=== PATIENT | male | born 1945 | race Caucasian/White ===

== ENCOUNTER 2017-08-25 11:41 | Inpatient (IN) | payer MEDICARE, BC ==
--- NOTE | 2017-08-25 12:26 | CT ---
CT BRAIN WITHOUT CONTRAST: History: Altered mental status. FINDINGS: There is ventricular and sulcal prominence due to cortical atrophy. No evidence of acute infarct, hem orrhage, midline shift, or abnormal extraaxial fluid collections seen. Ventricular size is appropriat e and the basilar cisterns patent. The bony calvarium is intact. The visualized paranasal sinuses and mastoid air cells are well aerated. IMPRESSION: No CT evidence of acute intracranial process. POS: [facility]
[2017-08-25 12:44] LABS: #Eosinphils 0.1 thou/uL (0.0-0.7); #Lymphocytes 1.5 thou/uL (1.20-3.40); #Monocytes 0.8 thou/uL (0.11-0.59); #Neutrophils 9.2 thou/uL (1.40-6.50); %Basophils 0.1 % (0.0-1.0); %Eosinophils 0.6 % (0.0-10.0); %Lymphocytes 12.9 % (21.0-51.0); %Monocytes 6.5 % (0.0-10.0); %Neutrophils 79.9 % (42.0-75.0); Hemoglobin 14.7 g/dL (14.0-18.0); Mean Corpuscular HGB CONC 34.3 g/dL (32.0-36.0); Mean Corpuscular Hemoglobin 30.6 pg (27.0-31.0); Mean Corpuscular Volume 89.3 fL (78.0-98.0); Mean Platelet Volume 8.4 fL (7.4-10.4); Platelet Count 131 thou/uL (130-400); Red Blood Cell (RBC) Count 4.82 mill/uL (4.70-6.10); White Blood Cell (WBC) Count 11.5 thou/uL (4.8-10.8)
[2017-08-25 13:01] LABS: ALT (SGPT) 10 U/L (8-55); AST (SGOT) 12 U/L (5-34); Albumin 3.4 g/dL (3.4-4.8); Alkaline Phosphatase 97 U/L (40-150); Anion Gap 15 mmol/L (10-20); BUN (Urea Nitrogen) 22 mg/dL (8.4-25.7); Calc. Creatinine Clearance 0 mL/min (70-130); Calcium 8.8 mg/dL (7.8-10.44); Carbon Dioxide 22 mmol/L (23-31); Chloride 103 mmol/L (98-107); Estimated GFR-MDRD 50; Globulin 2.9 g/dL (2.4-3.5); Glucose 131 mg/dL (80-115); Lipase Less than 4 U/L (8-78); Potassium 4.2 mmol/L (3.5-5.1); Protein, Total 6.3 g/dL (5.8-8.1); Sodium 136 mmol/L (136-145)
[2017-08-25 13:03] LABS: CK (CPK) 35 U/L (30-200)
[2017-08-25 13:05] LABS: CKMB 1.1 ng/mL (0-6.6); Troponin I Less than 0.010 ng/mL (< 0.028)
[2017-08-25 13:09] LABS: Bilirubin Moderate (Negative); Blood, Urine Negative (Negative); Clarity CLEAR (Clear); Glucose, Urine (Dipstick) 100 mg/dL (Negative); Leukocyte Negative (Negative); Nitrite Negative (Negative); Protein, Urine (Dipstick) Negative (Neg-Trace); Specific Gravity, Urine 1.023 (1.002-1.036)
--- NOTE | 2017-08-25 13:22 | RAD ---
PORTABLE CHEST 1 VIEW: Date: 08/25/17 Time: 1225 hours HISTORY: Altered mental status. FINDINGS: The heart size is normal. The lungs are expanded without focal areas of consolidation, pneumothorax, or pleural effusions. There are degenerative changes in the acromioclavicular joints and shoulder morris nts. IMPRESSION: No radiographic evidence of acute cardiopulmonary process. POS: [facility]
[2017-08-25 16:16] LABS: Troponin I Less than 0.010 ng/mL (< 0.028)
[2017-08-25 19:26] LABS: Troponin I 0.014 ng/mL (< 0.028)
[2017-08-25] MEDS ORDERED: Sodium Chloride 0.9% 1,000 ML IV SCH (19:30)
[2017-08-25] MEDS ORDERED: Ondansetron HCl/PF 4 MG/2 ML Vial IVP PRN (19:40)
[2017-08-25] MEDS ORDERED: Dextrose 50% Abboject 50 ML SYRINGE SLOW IVP PRN (19:40)
[2017-08-25] MEDS ORDERED: Dextrose 5% in Water 1,000 ML IV PRN (19:40)
[2017-08-25] MEDS ORDERED: Ondansetron ODT 4 MG TAB PO PRN (19:40)
[2017-08-25] MEDS ORDERED: cloNIDine 0.1 MG TAB PO PRN (19:40)
[2017-08-25] MEDS ORDERED: HumaLOG 300 UNITS/3 ML VIAL SC PRN (19:40)
[2017-08-25] MEDS: Famotidine/PF 20 mg/2ml Vial SLOW IVP SCH (20:05)
[2017-08-25] MEDS: Sodium Chloride 0.9% 1,000 ML IV SCH (20:05)
--- NOTE | 2017-08-26 02:05 | HP ---
DATE OF ADMISSION: 08/25/2017 PRIMARY CARE PROVIDER: Dr. Martinez. CHIEF COMPLAINT: Altered mental status. HISTORY OF PRESENT ILLNESS: This is a 71-year-old male who presents to [facility] in transport by EMS personnel after patient's caregiver noted increasing confusion and altered mental status in the last 24-48 hours. The history is obtained exclusively after discussion s with the ER attending as well as review of electronic medical records in the emergency room and dis cussions with the patient's caregiver, Ms. Mon. The patient apparently resides near [facility] in a mobile home with his caregiver and essentially is wheelchair bound due to advanced Parkinson's disease. The patient also has a significant history of advanced dementia, and diabetes mellitus typ e 1. The patient has lived with the caregiver for approximately 20 plus years relocating to the [facility] area after living in [place], [place]. The caregiver states the patient is usually verbal, responsi ve, can carry on conversations and feed himself. The patient over the last 48 hours was noted with c onfusion, decreased alertness, sleeping 20+ hours out of the day and night, and appearing to hallucin ate. 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 The patient was not noted with any specif ic hyper or hypoglycemia or hypotension per caregiver report. The patient does urinate in a adult de pends/diaper on a regular basis. The patient has been placed on Myrbetriq in the last 2 months prior to this evaluation. The medication was started due to nocturnal incontinence. The caregiver report s no specific change in the frequency or volume of nocturnal incontinence. The patient has been foll owed on a regular basis by the Neurology at [facility] in [place], [place] and diagnosed with the Parkinson 's disease and advanced dementia. The patient also with diabetes mellitus type 1 on Lantus 20 units at bedtime with occasional sliding scale with NovoLog. In the emergency room, the patient underwent evaluation including CT imaging of the brain showing no acute intracranial process. Portable chest x -ray was unrevealing and screening metabolic survey showed mild leukocytosis and elevated creatinine suggestive of dehydration. The patient received intravenous normal saline and had been observed on t he electronic device monitor showing a sinus bradycardia in the 40s-50s. The patient was referred to the [facility] for evaluation and admission. PAST MEDICAL HISTORY: 1. Advanced Parkinson's disease requiring mobilization with wheelchair. 2. Dementia, likely Alzheimer's type. 3. Diabetes mellitus type 1, treated with Lantus. 4. History of myocardial infarction. 5. Question of dysphagia. PAST SURGICAL HISTORY: Status post cholecystectomy. CURRENT MEDICATIONS: 1. Myrbetriq 50 mg p.o. daily. 2. Folbic 2/2.5/25 mg 1 tablet p.o. daily. 3. Sertraline 50 mg 1 tablet p.o. q.a.m. and 2 tabs at the bedtime. 4. NovoLog sliding scale. 5. Lantus 20 units subcutaneously at bedtime. ALLERGIES: No known drug allergies. FAMILY HISTORY: Positive for diabetes. SOCIAL HISTORY: The patient resides in the [facility], living with a glue reel operator over the last 20+ years. No alcohol, tobacco or illicit drug use. Requires assistance with all activities of ruth ly living. Mobilizes with the use of a wheelchair. No recent falls. 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 REVIEW OF SYSTEMS: The following complete review of systems was negative, unless otherwise mentioned in the HPI or below: Constitutional: Weight loss or gain, ability to conduct usual activities. Sk in: Rash, itching. Eyes: Double vision, pain. ENT/Mouth: Nose bleeding, neck stiffness, pain, te nderness. Cardiovascular: Palpitations, dyspnea on exertion, orthopnea. Respiratory: Shortness of breath, wheezing, cough, hemoptysis, fever or night sweats. Gastrointestinal: Poor appetite, abdom inal pain, heartburn, nausea, vomiting, constipation, or diarrhea. Genitourinary: Urgency, frequenc y, dysuria, nocturia. Musculoskeletal: Pain, swelling. Neurologic/Psychiatric: Anxiety, depressio n. Allergy/Immunologic: Skin rash, bleeding tendency. Otherwise negative, except as stated per HPI. This was obtained after discussions with the patient's primary caregiver. PHYSICAL EXAMINATION: VITAL SIGNS: On admission, blood pressure 150/73, pulse 46, respiratory rate 18, temperature 98.5, O 2 saturation 99% on room air. T-max 100.1 degrees Fahrenheit. GENERAL APPEARANCE: This is a 71-year-old male, alert when directly engaged in conversatio n, responds with one word to his name. Oriented x1 to person. HEENT: Pupils are minimally reactive to light and accommodation. The patient does not track with ey es. No scleral icterus, no conjunctival injection. Nares patent. OP is clear. Oral mucosa dry. NECK: Supple, no cervical adenopathy, no thyromegaly, no carotid bruits, no JVD appreciated. Cervic al spine with full active and passive range of motion. No meningeal signs appreciated. Scalp is atr aumatic. CHEST: Lungs are clear to auscultation bilaterally. CARDIOVASCULAR: S1, S2, without noted murmur, rub or gallop. ABDOMEN: Rounded, soft, nontender, nondistended. Bowel sounds are positive in all four quadrants. There is no hepatosplenomegaly, no abdominal bruits, no rebound or guarding appreciated. EXTREMITIES: Warm and dry with fair turgor. No clubbing, cyanosis or asymmetric edema appreciated. Pulses palpable distally at the dorsalis pedis, posterior tibial, and popliteal arteries bilaterally . Capillary refill less than 2 seconds. NEUROLOGIC: Alert and oriented to person only. Does not follow commands. Not observed ambulatory. Moves extremities in random movements. Bilateral eye blindness. PERTINENT LABORATORY AND X-RAY FINDINGS: Sodium 136, potassium 4.2, chloride 103, CO2 of 22, BUN 22, creatinine 1.41, estimated GFR 50, glucose 131, calcium 8.8. LFTs within normal limits. Troponin I negative x2. Albumin 3.4, lipase less than 4, TSH 2.07. CBC showed a white blood cell count 11.5, hemoglobin 15, hematocrit 43, platelet count 131 with 80% neutrophils. Urinalysis showed positive gl ucose and ketones, moderate bilirubin with leukocyte esterase negative. CT of the brain without cont rast dated 08/25/2017 showed no acute intracranial process. Generalized cortical atrophy noted. Por table chest x-ray dated 08/25/2017 showed no acute cardiopulmonary process. EKG dated 08/25/2017 by my interpretation shows a sinus bradycardia with heart rates in the 40s to 50s. Normal R-wave progre ssion noted in the precordial leads. Right bundle branch block pattern noted. Left axis deviation. Question of bifascicular block. ASSESSMENT AND PLAN: 1. Acute encephalopathy likely metabolic in nature. The patient will be observed on the telemetry u nit. We will continue general supportive management. Suspect component of dehydration and questiona ble underlying infectious process. Continue serial neurologic evaluations. 2. Acute kidney injury. Suspect secondary to volume depletion and dehydration. We will continue in travenous normal saline at 125 mL per hour. Avoid nephrotoxic agents and limit contrast exposure. R epeat creatinine in the morning. 3. Neutrophilic leukocytosis. Question of underlying infectious process without obvious focal findi ngs on clinical exam. We will hold antibiotic therapy and monitor clinical response to supportive ma nagement. Repeat CBC in the a.m. 4. Diabetes mellitus type 1. Continue Lantus 20 units subcutaneously at bedtime when tolerating con sistent p.o. intake. Insulin sliding scale for reflexive coverage. ADA diet. 5. Dysphagia. Question of dysphagia on clinical exam. We will obtain speech therapy evaluation in the a.m. 6. Advanced Parkinson's disease with dementia. Continue general supportive management. Continue se rtraline. Continue Folbic. 7. Sinus bradycardia. Continue telemetry monitoring and ascertain if sinus bradycardia is related t o current presentation. 8. Prophylaxis. Sequential compression devices while in bed. Pepcid 20 mg IV q.12 hours. General fall precautions. Speech therapy evaluation in the a.m. 9. Code status is FULL. Surrogate medical decision maker is Ms. Mon, primary caregiver.
[2017-08-26] MEDS: Sodium Chloride 0.9% 1,000 ML IV SCH ×3 (04:04→21:07)
[2017-08-26 06:00] LABS: ALT (SGPT) 11 U/L (8-55); AST (SGOT) 28 U/L (5-34); Albumin 3.4 g/dL (3.4-4.8); Alkaline Phosphatase 98 U/L (40-150); Anion Gap 17 mmol/L (10-20); BUN (Urea Nitrogen) 20 mg/dL (8.4-25.7); Calc. Creatinine Clearance 58 mL/min (70-130); Calcium 8.7 mg/dL (7.8-10.44); Carbon Dioxide 20 mmol/L (23-31); Chloride 105 mmol/L (98-107); Estimated GFR-MDRD 57; Globulin 3.2 g/dL (2.4-3.5); Glucose 132 mg/dL (80-115); Potassium 4.5 mmol/L (3.5-5.1); Protein, Total 6.6 g/dL (5.8-8.1); Sodium 137 mmol/L (136-145)
[2017-08-26 07:41] LABS: Mean Corpuscular HGB CONC 33.2 g/dL (32.0-36.0); Mean Corpuscular Hemoglobin 30.3 pg (27.0-31.0); Mean Corpuscular Volume 91.4 fL (78.0-98.0); Mean Platelet Volume 8.8 fL (7.4-10.4); Platelet Count 110 thou/uL (130-400); RBC Distribution Width 11.9 % (11.5-14.5); Red Blood Cell (RBC) Count 4.62 mill/uL (4.70-6.10); White Blood Cell (WBC) Count 10.5 thou/uL (4.8-10.8)
[2017-08-26 07:45] LABS: Band 4 % (5-11); Eosinophils 1 % (0-10); Lymphocytes 12 % (21-51); Monocytes 4 % (0-10); Neutrophil 79 % (42-75)
[2017-08-26 07:46] LABS: MDiff Complete? YES
--- NOTE | 2017-08-26 14:05 | RAD ---
MODIFIED BARIUM SWALLOW IN THE PRESENCE OF A SPEECH THERAPIST: Date: 08/26/17 HISTORY: Dysphagia, unspecified, feeding difficulties. FINDINGS/IMPRESSION: There is laryngeal penetration and aspiration. Persistent pooling of contrast is seen with residual i n the vallecula and piriform sinuses. Please see recommendations of the speech therapist for further management. POS: [facility]
--- NOTE | 2017-08-26 15:32 | PDOC.PN ---
- Subjective Encounter Start Date: 08/26/17 Encounter Start Time: 15:25 Subjective: f/u for AMS, encephalopathy, GOYO and advanced Parkinson's and -: deconditioning. Receiving IVF's but remains weak and confused. - Objective MAR Reviewed: Yes Vital Signs & Weight: Vital Signs (12 hours) Temp Pulse Resp BP Pulse Ox 08/26/17 12:00 98.5 F 57 L 12 169/73 H 98 Result Diagrams: 08/26/17 05:25 08/26/17 05:25 Additional Labs: Accuchecks 08/26/17 10:59 POC Glucose 143 H Microbiology 08/25/17 12:48 Urine Straight Catheter Urine Culture - Preliminary NO GROWTH AT 12 HOURS Laboratory Tests 08/25/17 08/25/17 08/25/17 12:35 12:35 12:35 WBC 11.5 H Plt Count 131 Troponin I Less than 0.010 TSH 3rd Generation 2.0707 08/25/17 08/25/17 15:34 19:00 WBC Plt Count Troponin I Less than 0.010 0.014 TSH 3rd Generation Radiology Reviewed by me: Yes (MBS - +aspiration, penetration) EKG Reviewed by me: Yes (Tele - Sinus bradycardia) Phys Exam - Physical Examination does not track, bilat eye blindness HEENT: moist MMs, sclera anicteric, oral pharynx no lesions Neck: no nodes, no JVD, supple, full ROM Respiratory: no wheezing, no rales, no rhonchi, clear to auscultation bilateral S1, S2 Cardiovascular: RRR, no significant murmur, no rub, gallop Gastrointestinal: soft, non-tender, no distention, positive bowel sounds Musculoskeletal: no edema, pulses present alert, does not track, states a few words to direct questioning Neurological: moves all 4 limbs A x O x 1 Skin: no rash, normal turgor, cap refill <2 seconds Dx/Plan (1) Acute metabolic encephalopathy Code(s): G93.41 - METABOLIC ENCEPHALOPATHY Status: Acute Comment: Persistent , likely multifactorial, check MRI brain to r/o occult CVA, continue supportive mgmt (2) GOYO (acute kidney injury) Code(s): N17.9 - ACUTE KIDNEY FAILURE, UNSPECIFIED Status: Acute Comment: Slow improvement, continue IVF's, avoid nephrotoxic meds and limit contrast exposure, serial monitoring (3) Neutrophilic leukocytosis Code(s): D72.9 - DISORDER OF WHITE BLOOD CELLS, UNSPECIFIED Status: Acute Comment: Improved, continue supportive mgmt, CBC in am (4) Aspiration into airway Code(s): T17.908A - UNSP FB IN RESP TRACT, PART UNSP CAUSING OTH INJURY, INIT Status: Acute Comment: Speech therapy for modified diet and daily assessment, may need to consider PEG placement (5) Dysphagia Code(s): R13.10 - DYSPHAGIA, UNSPECIFIED Status: Acute Qualifiers: Dysphagia type: oropharyngeal phase Qualified Code(s): R13.12 - Dysphagia, oropharyngeal phase Comment: Likely a chronic condition potentially exacerbated with dehydration, see above for mgmt (6) DM I (diabetes mellitus, type I) Status: Chronic Comment: Hold Lantus, ISS (7) Sinus bradycardia Code(s): R00.1 - BRADYCARDIA, UNSPECIFIED Status: Chronic Comment: Continue Tele monitoring, no correlation with current clinical presentation - Plan plan discussed w/ family, PT/OT, clinical social work therapist, speech therapy, DVT proph w/ SCDs Stable currently -: Convert to inpt status due to Encephalopathy, GOYO, Aspiration -: Continue IVF's -: MRI brain to r/o CVA -: Consider PEG placement if modified diet unsuccessful * AM lab: BMP, CBC * CM for SNF/Fpc care options
[2017-08-26] MEDS: Famotidine/PF 20 mg/2ml Vial SLOW IVP SCH ×2 (19:49→21:11)
[2017-08-26] MEDS: Donepezil HCl 10 MG TAB PO SCH (20:59)
[2017-08-26] MEDS ORDERED: DONEPEZIL HCL PO SCH (21:00)
[2017-08-26] MEDS ORDERED: [UNRECOGNIZED DRUG - OTHER] PO SCH (21:00)
[2017-08-26] MEDS ORDERED: MEMANTINE HCL PO SCH (21:00)
[2017-08-26] MEDS: Dorzolamide HCl/Timolol Maleate 2%/0.5% Ophth Soln 10 ml Bottle R EYE SCH (21:08)
[2017-08-26] MEDS: Latanoprost 0.005% Ophth Soln 2.5 ml Bottle EA EYE SCH (21:10)
[2017-08-27] MEDS: Sodium Chloride 0.9% 1,000 ML IV SCH (06:02)
[2017-08-27 06:23] LABS: Anion Gap 14 mmol/L (10-20); BUN (Urea Nitrogen) 13 mg/dL (8.4-25.7); Calc. Creatinine Clearance 80 mL/min (70-130); Calcium 8.7 mg/dL (7.8-10.44); Carbon Dioxide 22 mmol/L (23-31); Estimated GFR-MDRD 82; Glucose 146 mg/dL (80-115); Potassium 3.9 mmol/L (3.5-5.1); Sodium 137 mmol/L (136-145)
[2017-08-27 06:27] LABS: Chloride 105 mmol/L (98-107)
[2017-08-27 06:34] LABS: Band 3 % (5-11); Eosinophils 2 % (0-10); Hemoglobin 13.7 g/dL (14.0-18.0); Lymphocytes 19 % (21-51); MDiff Complete? YES; Mean Corpuscular Hemoglobin 31.3 pg (27.0-31.0); Mean Corpuscular Volume 89.4 fL (78.0-98.0); Mean Platelet Volume 9.5 fL (7.4-10.4); Monocytes 1 % (0-10); Neutrophil 74 % (42-75); PLT Morphology Comment Appears Decreased; Platelet Count 91 thou/uL (130-400); RBC Distribution Width 11.8 % (11.5-14.5); Reactive Lymphocytes 1 % (0-10); Red Blood Cell (RBC) Count 4.38 mill/uL (4.70-6.10); White Blood Cell (WBC) Count 6.9 thou/uL (4.8-10.8)
[2017-08-27] MEDS: Stress 600 With Zinc 1 TAB PO SCH (09:13)
[2017-08-27] MEDS: Dorzolamide HCl/Timolol Maleate 2%/0.5% Ophth Soln 10 ml Bottle R EYE SCH ×2 (09:13→20:13)
[2017-08-27] MEDS: Famotidine/PF 20 mg/2ml Vial SLOW IVP SCH ×2 (10:00→20:21)
--- NOTE | 2017-08-27 12:59 | PDOC.PN ---
- Subjective Encounter Start Date: 08/27/17 Encounter Start Time: 12:45 Subjective: Family stating clearer mentally. Appearing near baseline mentally. -: No new events. MRI unable to be completed due to head moving. - Objective MAR Reviewed: Yes Vital Signs & Weight: Vital Signs (12 hours) Temp Pulse Resp BP Pulse Ox 08/27/17 08:00 96.9 F L 84 18 155/83 H 94 L 08/27/17 03:23 97.3 F L 83 19 176/82 H 96 Weight Weight 165 lb I&O: 08/26/17 08/27/17 08/28/17 06:59 06:59 06:59 Intake Total 1200 Balance 1200 Result Diagrams: 08/27/17 04:50 08/27/17 04:50 Additional Labs: Accuchecks 08/27/17 08/27/17 08/26/17 10:55 05:49 20:55 POC Glucose 159 H 164 H 185 H 08/26/17 16:35 POC Glucose 180 H Microbiology 08/25/17 12:48 Urine Straight Catheter Urine Culture - Preliminary NO GROWTH AT 12 HOURS Laboratory Tests 08/25/17 08/25/17 08/25/17 12:35 12:35 12:35 WBC 11.5 H Plt Count 131 Creatinine 1.41 H Troponin I [facility] 3rd Generation 2.0707 08/25/17 08/25/17 08/25/17 12:35 15:34 19:00 WBC Plt Count Creatinine Troponin I Less than 0.010 Less than 0.010 0.014 TSH 3rd Generation 08/26/17 05:25 WBC Plt Count Creatinine 1.26 Troponin I [facility] 3rd Generation Radiology Reviewed by me: Yes (MRI brain - pending) EKG Reviewed by me: Yes (SR in 80's) Phys Exam - Physical Examination Constitutional: NAD HEENT: sclera anicteric, oral pharynx no lesions Neck: no nodes, no JVD, supple, full ROM Respiratory: no wheezing, no rales, no rhonchi, clear to auscultation bilateral S1, S2 Cardiovascular: RRR, no significant murmur, no rub, gallop Gastrointestinal: soft, non-tender, no distention, positive bowel sounds Musculoskeletal: no edema, pulses present Neurological: moves all 4 limbs Skin: no rash, normal turgor, cap refill <2 seconds Dx/Plan (1) Acute metabolic encephalopathy Code(s): G93.41 - METABOLIC ENCEPHALOPATHY Status: Acute Comment: Persistent , likely multifactorial, check MRI brain to r/o occult CVA, continue supportive mgmt, slow improvement (2) GOYO (acute kidney injury) Code(s): N17.9 - ACUTE KIDNEY FAILURE, UNSPECIFIED Status: Acute Comment: Slow improvement, continue IVF's, avoid nephrotoxic meds and limit contrast exposure, serial monitoring (3) Neutrophilic leukocytosis Code(s): D72.9 - DISORDER OF WHITE BLOOD CELLS, UNSPECIFIED Status: Acute Comment: Improved, continue supportive mgmt, CBC in am (4) Aspiration into airway Code(s): T17.908A - UNSP FB IN RESP TRACT, PART UNSP CAUSING OTH INJURY, INIT Status: Acute Comment: Speech therapy for modified diet and daily assessment, may need to consider PEG placement (5) Dysphagia Code(s): R13.10 - DYSPHAGIA, UNSPECIFIED Status: Acute Qualifiers: Dysphagia type: oropharyngeal phase Qualified Code(s): R13.12 - Dysphagia, oropharyngeal phase Comment: Likely a chronic condition potentially exacerbated with dehydration, see above for mgmt (6) DM I (diabetes mellitus, type I) Status: Chronic Comment: Hold Lantus, ISS (7) Sinus bradycardia Code(s): R00.1 - BRADYCARDIA, UNSPECIFIED Status: Chronic Comment: Continue Tele monitoring, no correlation with current clinical presentation - Plan plan discussed w/ family, PT/OT, social secretary, DVT proph w/SCDs Stable currently -: Start Rocephin 2gm IV daily -: Change IVF D5NS 100ml/h -: Speech therapy for re-evaluation of dysphagia -: NPO currently * AM lab: BMP
[2017-08-27] MEDS: Dextrose 5 % And 0.9 % NaCl 1,000 ML IV SCH (13:17)
[2017-08-27] MEDS: cefTRIAXone\\ROCEPHIN 2 GM in Sodium Chloride 0.9% 100 ML IVPB SCH (15:16)
[2017-08-27] MEDS: Donepezil HCl 10 MG TAB PO SCH (20:10)
[2017-08-27] MEDS: Latanoprost 0.005% Ophth Soln 2.5 ml Bottle EA EYE SCH (20:27)
[2017-08-27] MEDS: hydrALAZINE 20 MG/ML VIAL SLOW IVP PRN (21:19)
[2017-08-28] MEDS: Dextrose 5 % And 0.9 % NaCl 1,000 ML IV SCH ×3 (00:25→21:53)
[2017-08-28] MEDS: Sodium Chloride 0.9% 1,000 ML IV SCH (01:02)
[2017-08-28 05:53] LABS: Anion Gap 16 mmol/L (10-20); BUN (Urea Nitrogen) 8 mg/dL (8.4-25.7); Calc. Creatinine Clearance 88 mL/min (70-130); Calcium 8.4 mg/dL (7.8-10.44); Carbon Dioxide 19 mmol/L (23-31); Chloride 103 mmol/L (98-107); Estimated GFR-MDRD Greater than 90; Glucose 233 mg/dL (80-115); Potassium 3.5 mmol/L (3.5-5.1); Sodium 134 mmol/L (136-145)
[2017-08-28] MEDS: Dorzolamide HCl/Timolol Maleate 2%/0.5% Ophth Soln 10 ml Bottle R EYE SCH ×2 (09:47→20:42)
[2017-08-28] MEDS: Famotidine/PF 20 mg/2ml Vial SLOW IVP SCH ×2 (09:47→20:38)
[2017-08-28] MEDS: Stress 600 With Zinc 1 TAB PO SCH (09:48)
[2017-08-28] MEDS: HumaLOG 300 UNITS/3 ML VIAL SC PRN (12:55)
[2017-08-28] MEDS: cefTRIAXone\\ROCEPHIN 2 GM in Sodium Chloride 0.9% 100 ML IVPB SCH (14:58)
--- NOTE | 2017-08-28 15:05 | PDOC.PN ---
- Subjective Encounter Start Date: 08/28/17 Encounter Start Time: 14:00 Subjective: f/u for AMS and GOYO with dehydration. Still hallucinating per family -: and choked on water this am. - Objective MAR Reviewed: Yes Vital Signs & Weight: Vital Signs (12 hours) Temp Pulse Resp BP Pulse Ox 08/28/17 07:50 97.7 F 79 18 174/89 H 96 08/28/17 03:30 98.5 F 87 18 167/84 H 97 Weight Weight 164 lb 11.2 oz I&O: 08/27/17 08/28/17 08/29/17 06:59 06:59 06:59 Intake Total 1200 2429 Output Total 200 Balance 1200 2229 Result Diagrams: 08/27/17 04:50 08/28/17 04:28 Additional Labs: Accuchecks 08/28/17 08/27/17 08/27/17 05:47 20:45 16:56 POC Glucose 240 H 198 H 172 H Microbiology 08/25/17 12:48 Urine Straight Catheter Urine Culture - Preliminary NO GROWTH AT 12 HOURS Laboratory Tests 08/25/17 08/25/17 08/25/17 12:35 12:35 12:35 WBC 11.5 H Plt Count 131 Creatinine 1.[address] [facility] 3rd Generation 2.0707 08/25/17 08/25/17 08/25/17 12:35 15:34 19:00 WBC Plt Count Creatinine Troponin I Less than 0.010 Less than 0.010 0.014 TSH 3rd Generation 08/26/17 05:25 WBC Plt Count Creatinine 1.[address] [facility] 3rd Generation EKG Reviewed by me: Yes (Tele - SR) Phys Exam - Physical Examination answers direct questions with 2 words HEENT: PERRLA, sclera anicteric, oral pharynx no lesions Neck: no nodes, no JVD, supple, full ROM Respiratory: no wheezing, no rales, no rhonchi, clear to auscultation bilateral S1, S2 Cardiovascular: RRR, no significant murmur, no rub, gallop Gastrointestinal: soft, non-tender, no distention, positive bowel sounds Musculoskeletal: no edema, pulses present Neurological: normal sensation, moves all 4 limbs A x O x 1 Skin: no rash, normal turgor, cap refill <2 seconds Dx/Plan (1) Acute metabolic encephalopathy Code(s): G93.41 - METABOLIC ENCEPHALOPATHY Status: Acute Comment: Persistent , likely multifactorial, check MRI brain to r/o occult CVA, continue supportive mgmt, slow improvement (2) GOYO (acute kidney injury) Code(s): N17.9 - ACUTE KIDNEY FAILURE, UNSPECIFIED Status: Acute Comment: Improved, continue IVF's, avoid nephrotoxic meds and limit contrast exposure, serial monitoring (3) Neutrophilic leukocytosis Code(s): D72.9 - DISORDER OF WHITE BLOOD CELLS, UNSPECIFIED Status: Acute Comment: Improved, continue supportive mgmt, CBC in am (4) Aspiration into airway Code(s): T17.908A - UNSP FB IN RESP TRACT, PART UNSP CAUSING OTH INJURY, INIT Status: Acute Comment: Speech therapy for modified diet and daily assessment, may need to consider PEG placement (5) Dysphagia Code(s): R13.10 - DYSPHAGIA, UNSPECIFIED Status: Acute Qualifiers: Dysphagia type: oropharyngeal phase Qualified Code(s): R13.12 - Dysphagia, oropharyngeal phase Comment: Likely a chronic condition potentially exacerbated with dehydration, see above for mgmt, likely will need a PEG tube for nutritional support (6) DM I (diabetes mellitus, type I) Status: Chronic Comment: Hold Lantus, ISS (7) Sinus bradycardia Code(s): R00.1 - BRADYCARDIA, UNSPECIFIED Status: Chronic Comment: Continue Tele monitoring, no correlation with current clinical presentation - Plan plan discussed w/ family, continue antibiotics, PT/OT, renal social worker, speech therapy, DVT proph w/SCDs Stable overall -: Speech therapy for reassessment of swallowing -: Likely will need to consider PEG tube -: Palliative care consult for MPOA assistance -: Continue Rocephin * Continue D5NS IV * Consider MRI brain imaging in am
[2017-08-28] MEDS: Donepezil HCl 10 MG TAB PO SCH (20:35)
[2017-08-28] MEDS: Latanoprost 0.005% Ophth Soln 2.5 ml Bottle EA EYE SCH (20:36)
[2017-08-29] MEDS: Dextrose 5 % And 0.9 % NaCl 1,000 ML IV SCH ×2 (06:41→14:55)
[2017-08-29] MEDS: Famotidine/PF 20 mg/2ml Vial SLOW IVP SCH ×2 (09:08→20:34)
[2017-08-29] MEDS: Dorzolamide HCl/Timolol Maleate 2%/0.5% Ophth Soln 10 ml Bottle R EYE SCH ×2 (09:08→20:32)
[2017-08-29] MEDS: Stress 600 With Zinc 1 TAB PO SCH (09:12)
[2017-08-29 13:07] VITALS: BMI 23.6
[2017-08-29] MEDS: cefTRIAXone\\ROCEPHIN 2 GM in Sodium Chloride 0.9% 100 ML IVPB SCH (14:55)
--- NOTE | 2017-08-29 17:05 | PDOC.PN ---
- Subjective Encounter Start Date: 08/29/17 Encounter Start Time: 13:15 Subjective: f/u for AMS, advanced dementia and dysphagia. Still unable to tolerate -: po intake. Continues to hallucinate, rambles sentences. - Objective MAR Reviewed: Yes Vital Signs & Weight: Vital Signs (12 hours) Temp Pulse Pulse Pulse Resp BP BP 08/29/17 15:01 98.2 F 79 16 08/29/17 13:44 86 91 181/81 H 185/95 H 08/29/17 11:40 97.6 F 79 18 08/29/17 09:05 96.4 F L 87 16 BP Pulse Ox 08/29/17 15:01 165/80 H 98 08/29/17 13:44 08/29/17 11:40 163/87 H 100 08/29/17 09:05 143/89 H 100 Weight Admit Weight 163 lb Weight 164 lb 11.2 oz I&O: 08/28/17 08/29/17 08/30/17 06:59 06:59 06:59 Intake Total 2429 1051 Output Total 200 150 Balance 2229 901 Result Diagrams: 08/27/17 04:50 08/28/17 04:28 Additional Labs: Accuchecks 08/29/17 08/28/17 06:10 20:40 POC Glucose 241 H 268 H EKG Reviewed by me: Yes (Tele - SR) Phys Exam - Physical Examination alert, responds a few words to questions HEENT: PERRLA, sclera anicteric, oral pharynx no lesions Neck: no nodes, no JVD, supple, full ROM Respiratory: no wheezing, no rales, no rhonchi, clear to auscultation bilateral S1, S2 Cardiovascular: RRR, no significant murmur, no rub, gallop Gastrointestinal: soft, non-tender, no distention, positive bowel sounds Musculoskeletal: no edema, pulses present confused, visual hallucinations Neurological: moves all 4 limbs A x O x 1 Skin: no rash, normal turgor, cap refill <2 seconds Dx/Plan (1) Acute metabolic encephalopathy Code(s): G93.41 - METABOLIC ENCEPHALOPATHY Status: Acute Comment: Persistent , likely multifactorial, supportive mgmt (2) GOYO (acute kidney injury) Code(s): N17.9 - ACUTE KIDNEY FAILURE, UNSPECIFIED Status: Acute Comment: Improved, IVF's, avoid nephrotoxic meds and limit contrast exposure (3) Neutrophilic leukocytosis Code(s): D72.9 - DISORDER OF WHITE BLOOD CELLS, UNSPECIFIED Status: Acute Comment: Improved, continue supportive mgmt, CBC in am (4) Aspiration into airway Code(s): T17.908A - UNSP FB IN RESP TRACT, PART UNSP CAUSING OTH INJURY, INIT Status: Acute Comment: Speech therapy for modified diet and daily assessment, family likely leaning toward PEG tube placement (5) Dysphagia Code(s): R13.10 - DYSPHAGIA, UNSPECIFIED Status: Acute Qualifiers: Dysphagia type: oropharyngeal phase Qualified Code(s): R13.12 - Dysphagia, oropharyngeal phase Comment: Likely a chronic condition potentially exacerbated with dehydration, see above for mgmt, likely will need a PEG tube for nutritional support, consult GI service (6) DM I (diabetes mellitus, type I) Status: Chronic Comment: Hold Lantus due to NPO, ISS (7) Sinus bradycardia Code(s): R00.1 - BRADYCARDIA, UNSPECIFIED Status: Chronic Comment: Continue Tele monitoring, no correlation with current clinical presentation - Plan plan discussed w/ family, continue antibiotics, PT/OT, web content & social media manager, speech therapy, respiratory therapy, DVT proph w/SCDs AMS persists likely new baseline for pt -: Consult GI service for PEG tube placement -: MPOA established with Palliative care assistance -: Continue IVF's -: Continue Aricept and Namenda * Updated family today
[2017-08-29] MEDS ORDERED: Lorazepam 2 MG/ML VIAL SLOW IVP PRN (18:50)
[2017-08-29] MEDS: Donepezil HCl 10 MG TAB PO SCH (20:31)
[2017-08-29] MEDS: Latanoprost 0.005% Ophth Soln 2.5 ml Bottle EA EYE SCH (20:34)
[2017-08-30] MEDS: hydrALAZINE 20 MG/ML VIAL SLOW IVP PRN (00:34)
[2017-08-30] MEDS: Dextrose 5 % And 0.9 % NaCl 1,000 ML IV SCH ×3 (00:40→21:50)
[2017-08-30] MEDS: Stress 600 With Zinc 1 TAB PO SCH (08:51)
[2017-08-30] MEDS: Dorzolamide HCl/Timolol Maleate 2%/0.5% Ophth Soln 10 ml Bottle R EYE SCH ×2 (08:54→20:29)
[2017-08-30] MEDS: Famotidine/PF 20 mg/2ml Vial SLOW IVP SCH ×2 (08:54→21:50)
[2017-08-30] MEDS: cefTRIAXone\\ROCEPHIN 2 GM in Sodium Chloride 0.9% 100 ML IVPB SCH (14:51)
[2017-08-30] MEDS: Donepezil HCl 10 MG TAB PO SCH (20:24)
[2017-08-30] MEDS: Latanoprost 0.005% Ophth Soln 2.5 ml Bottle EA EYE SCH (20:29)
--- NOTE | 2017-08-31 05:08 | CON ---
DATE OF CONSULTATION: 08/30/2017 HISTORY OF PRESENT ILLNESS: The patient is a 71-year-old gentleman with a history of Parki nson's disease who presented with altered mental status. He was seen and evaluated by Speech Patholo gy and underwent a modified barium swallow and showed severe risk for aspiration. Findings per the b arium swallow showed laryngeal penetration and aspiration. PAST MEDICAL HISTORY: Significant for advanced Parkinson's disease, dementia, diabetes mellitus. PAST SURGICAL HISTORY: Includes cholecystectomy. MEDICATIONS: Include Myrbetriq 50 mg p.o. daily, Folbic 05/01/24 1 p.o. daily, sertraline 50 mg 1 p.o . q.a.m. and 2 p.o. q.p.m., insulin sliding scale. ALLERGIES: No known allergies. SOCIAL HISTORY: He has a caregiver and significant other and medical power of senior environmental consultant. REVIEW OF SYSTEMS: Unobtainable. PHYSICAL EXAMINATION: GENERAL: Shows a well-developed, well-nourished white male in no acute distress. VITAL SIGNS: Temperature 99.0, pulse 88, respiratory rate 18, blood pressure 174/86. HEENT: Unremarkable. NECK: Supple. CHEST: Clear. CARDIOVASCULAR: Regular rate and rhythm. ABDOMEN: Soft, nontender, without organomegaly or masses. LABORATORY DATA: Shows a white blood cell count of 6.9, hemoglobin 13, hematocrit of 39, platelet co unt 91,000. ASSESSMENT: 1. Oropharyngeal dysphagia -- the patient has tracheal aspiration on modified barium swallow. 2. Parkinson's disease. 3. Altered mental status. RECOMMENDATIONS: EGD and PEG in a.m.
[2017-08-31] MEDS: Famotidine/PF 20 mg/2ml Vial SLOW IVP SCH ×2 (08:46→23:12)
[2017-08-31] MEDS: Dorzolamide HCl/Timolol Maleate 2%/0.5% Ophth Soln 10 ml Bottle R EYE SCH ×2 (08:47→23:11)
[2017-08-31] MEDS: Stress 600 With Zinc 1 TAB PO SCH (08:48)
[2017-08-31] MEDS: Dextrose 5 % And 0.9 % NaCl 1,000 ML IV SCH ×2 (11:49→23:13)
[2017-08-31] MEDS: cefTRIAXone\\ROCEPHIN 2 GM in Sodium Chloride 0.9% 100 ML IVPB SCH (13:35)
--- NOTE | 2017-08-31 13:58 | PDOC.PN ---
- Subjective Encounter Start Date: 08/31/17 (f/u dysphagia) Encounter Start Time: 13:57 Subjective: Pt to have a peg tube today. Received ativan o/n for agitation and -: has been sleeping ever since. Caregiver reports pt was hallucinating -: yesterday, scared, picking at things and not his normal self - Objective Resuscitation Status: Resuscitation Status DNR:Do Not Resuscitate Vital Signs & Weight: Vital Signs (12 hours) Temp Pulse Resp BP Pulse Ox 08/31/17 11:16 97.2 F L 79 20 175/81 H 96 08/31/17 08:31 98.3 F 82 18 158/70 H 94 L 08/31/17 03:48 98.3 F 83 16 177/79 H Weight Admit Weight 163 lb Weight 164 lb 11.2 oz I&O: 08/30/17 08/31/17 09/01/17 06:59 06:59 06:59 Intake Total 2430 1030 Balance 2430 1030 Result Diagrams: 08/27/17 04:50 08/28/17 04:28 Additional Labs: Accuchecks 08/31/17 08/31/17 08/30/17 11:57 06:33 20:53 POC Glucose 243 H 239 H 223 H 08/30/17 08/30/17 16:58 12:12 POC Glucose 233 H 255 H EKG Reviewed by me: Yes (sinus 80-107) Phys Exam - Physical Examination Constitutional: NAD does not wake to voice or exam Respiratory: no wheezing, no rales, no rhonchi Cardiovascular: RRR, no significant murmur Gastrointestinal: soft, non-tender, no distention, positive bowel sounds Musculoskeletal: no edema cogwheel rigidity of arms bilateral, some hand contracture Deviation from normal: unable to assess Skin: no rash Dx/Plan (1) Dementia Code(s): F03.90 - UNSPECIFIED DEMENTIA WITHOUT BEHAVIORAL DISTURBANCE Status: Chronic Qualifiers: Dementia type: unspecified type (2) GOYO (acute kidney injury) Code(s): N17.9 - ACUTE KIDNEY FAILURE, UNSPECIFIED Status: Resolved Comment : Improved, IVF's, avoid nephrotoxic meds and limit contrast exposure (3) Acute metabolic encephalopathy Code(s): G93.41 - METABOLIC ENCEPHALOPATHY Status: Acute (4) Dysphagia Code(s): R13.10 - DYSPHAGIA, UNSPECIFIED Status: Acute Qualifiers: Dysphagia type: oropharyngeal phase Qualified Code(s): R13.12 - Dysphagia, oropharyngeal phase (5) DM I (diabetes mellitus, type I) Status: Chronic Qualifiers: Diabetes mellitus complication status: with unspecified complications Qualified Code(s): E10.8 - Type 1 diabetes mellitus with unspecified complications (6) Thrombocytopenia Code(s): D69.6 - THROMBOCYTOPENIA, UNSPECIFIED Status: Acute - Plan * Dysphagia - PEG tube today with GI, caregiver and POA requests this * Advanced dementia - per caregiver unknown if Parkinsons or lewy body or another type. On meds for memory - continue here. Confirmed sertraline dosing and pt takes 50 mg HS - ordered * Ativan - hold on any more of this as pt still sleeping at 14:00 today * * Urine culture is negative, pt has been on rocephin for a few days for UTI - will d/c this. * * Blood sugars in 200's - on IVF, start lantus at 10 units at night. As tube feeds started, will need to lower IVF and adjust insulin. Continue SSI prn * Thrombocytopenia - mild - reviewed chart and not on pharmacologic dvt prophy currently, use scd's for dvt prophylaxis, and recheck in AM * * dvt prophy - scd's * gi prophy - famotidine * code status DNR * * reviewed plan of care with caregiver, no questions or further needs at end of eval.
[2017-08-31] MEDS ORDERED: Lidocaine 1% PF 5 ML VIAL ONE (14:27)
[2017-08-31] MEDS ORDERED: PROPOFOL 200 MG/20 ML VIAL ONE (14:27)
--- NOTE | 2017-08-31 22:16 | HP ---
HISTORY OF PRESENT ILLNESS: Manpreet Black is a 71-year-old male patient who Dr. Vargas attempted to place a PEG today, but was unsuccessful. Plan is for PEG tube tomorrow, possibly laparoscopic stanley veronica. The patient is a DNR. He was admitted by the Hospitalist Service and seen by Dr. Vargas. Candido crowell has advanced Parkinson disease, wheelchair mobility, dementia, diabetes mellitus type 1 treated wit h insulin, history of coronary artery disease and dysphagia. History is obtained from the records as the patient is not a reliable historian. PAST MEDICAL HISTORY: Advanced Parkinson dementia, diabetes mellitus type 1 treated with Lantus, his tory of coronary artery disease, myocardial infarction, history of dysphagia. PAST SURGICAL HISTORY: Cholecystectomy. MEDICATIONS: Myrbetriq, Folbic, sertraline, insulin Lantus 20 units subcu at bedtime. 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 Alcoho l and tobacco none. Required assistance with all activities of daily living and he mobilized in a eelchair. PHYSICAL EXAMINATION: GENERAL: Patient is in the recovery room after failed attempted PEG tube. VITAL SIGNS: Height 5 foot and 10 inches, weight 164 pounds, 23 BMI, temperature 97.2, pulse 79, blo od pressure 175/81. HEAD, EYES, EARS, NOSE AND THROAT: Unremarkable. LUNGS: Clear to auscultation. CARDIAC: Regular rate and rhythm without murmur or gallop. ABDOMEN: Soft, nontender. EXTREMITIES: Unremarkable. LABORATORY DATA: White count 6, hemoglobin 13. Basic metabolic profile 08/28/2017 unremarkable. ASSESSMENT: Dysphagia, malnutrition in need of percutaneous endoscopic gastrostomy tube due to advan kerline Parkinson's and Alzheimer's. PLAN: PEG tube placement. Risk and benefits discussed.
[2017-08-31] MEDS: Donepezil HCl 10 MG TAB PO SCH (22:18)
--- NOTE | 2017-08-31 22:26 | OP ---
PREOPERATIVE DIAGNOSIS: Oropharyngeal dysphagia. PROCEDURE IN DETAIL: After informed consent was obtained, patient placed in supine position. Anesth esia was administered per the Anesthesia Department. Forward-viewing endoscope was inserted into eso phagus under direct visualization with ease and passed to the second portion of the duodenum with eas e. Second portion of the duodenum and duodenal bulb were normal. The pylorus, antrum, body, fundus, and cardia were normal except for a 2-cm pedunculated polyp in the mid body of the stomach, this was biopsied. The area was prepped and draped in usual manner. Anesthesia was applied with 1% lidocain e without epinephrine. A needle was not seen coming into the stomach, and therefore endoscopic place ment of the gastrostomy is not possible. ASSESSMENT: 1. Unsuccessful endoscopic placement of gastrostomy. 2. Gastric polyp in the mid body of the stomach - status post biopsy. RECOMMENDATIONS: 1. Await histopathology. 2. Surgical consult for laparoscopic gastrostomy placement.
[2017-08-31] MEDS: Latanoprost 0.005% Ophth Soln 2.5 ml Bottle EA EYE SCH (23:12)
[2017-08-31] MEDS: Insulin Glargine 10 UNITS in Pre-Filled Syringe 1 EACH SC SCH (23:12)
[2017-09-01] MEDS: Dextrose 5 % And 0.9 % NaCl 1,000 ML IV SCH ×2 (01:01→13:20)
[2017-09-01 05:43] LABS: #Eosinphils 0.1 thou/uL (0.0-0.7); #Lymphocytes 1.6 thou/uL (1.20-3.40); #Monocytes 0.4 thou/uL (0.11-0.59); #Neutrophils 4.4 thou/uL (1.40-6.50); %Basophils 0.1 % (0.0-1.0); %Eosinophils 1.9 % (0.0-10.0); %Lymphocytes 23.9 % (21.0-51.0); %Monocytes 6.4 % (0.0-10.0); %Neutrophils 67.7 % (42.0-75.0); Hemoglobin 12.2 g/dL (14.0-18.0); Mean Corpuscular HGB CONC 34.2 g/dL (32.0-36.0); Mean Corpuscular Hemoglobin 29.8 pg (27.0-31.0); Mean Corpuscular Volume 87.1 fL (78.0-98.0); Mean Platelet Volume 7.3 fL (7.4-10.4); Platelet Count 146 thou/uL (130-400); RBC Distribution Width 11.6 % (11.5-14.5); Red Blood Cell (RBC) Count 4.11 mill/uL (4.70-6.10); White Blood Cell (WBC) Count 6.5 thou/uL (4.8-10.8)
--- NOTE | 2017-09-01 05:52 | PDOC.PN ---
- Subjective Encounter Start Date: 08/30/17 Encounter Start Time: 10:20 -: old records requested/rev Pt seen and examined, chart reviewed in its entirety, this is my first visit with this patient Pt alert, but getting more confused. Last seen by ST was very somnolent discussed with family at length regarding PEG, they will think about it No F/C, no N/V/d/C, no CP, no SOB All systems reviewed and neg x as above - Objective Resuscitation Status: Resuscitation Status DNR:Do Not Resuscitate MAR Reviewed: Yes Vital Signs & Weight: Vital Signs (12 hours) Temp Pulse Resp BP Pulse Ox 09/01/17 03:41 99.4 F 79 19 163/82 H 98 09/01/17 00:00 179/88 H 08/31/17 19:30 99.4 F 86 20 168/81 H Weight Admit Weight 163 lb Weight 164 lb 11.2 oz I&O: 08/30/17 08/31/17 09/01/17 06:59 06:59 06:59 Intake Total 2430 1030 1200 Balance 2430 1030 1200 Result Diagrams: 09/01/17 04:40 08/28/17 04:28 Additional Labs: Accuchecks 08/31/17 08/31/17 08/31/17 21:16 16:39 11:57 POC Glucose 234 H 251 H 243 H 08/31/17 06:33 POC Glucose 239 H Radiology Reviewed by me: Yes EKG Reviewed by me: Yes Phys Exam - Physical Examination Constitutional: NAD HEENT: PERRLA, moist MMs, sclera anicteric, oral pharynx no lesions Neck: no nodes, no JVD, supple, full ROM Respiratory: no wheezing, no rales, no rhonchi, clear to auscultation bilateral Cardiovascular: RRR, no significant murmur, no rub Gastrointestinal: soft, non-tender, no distention, positive bowel sounds Musculoskeletal: no edema, pulses present Neurological: moves all 4 limbs Lymphatic: no nodes Deviation from normal: demented, O x 1. Skin: no rash, normal turgor, cap refill <2 seconds Dx/Plan (1) Acute metabolic encephalopathy Code(s): G93.41 - METABOLIC ENCEPHALOPATHY Status: Acute Comment: re-eval speech, restart meds if he can swallow (2) Aspiration into airway Code(s): T17.908A - UNSP FB IN RESP TRACT, PART UNSP CAUSING OTH INJURY, INIT Status: Acute Comment: Speech therapy for modified diet and daily assessment, family likely leaning toward PEG tube placement (3) Dysphagia Code(s): R13.10 - DYSPHAGIA, UNSPECIFIED Status: Acute Qualifiers: Dysphagia type: oropharyngeal phase Qualified Code(s): R13.12 - Dysphagia, oropharyngeal phase (4) Neutrophilic leukocytosis Code(s): D72.9 - DISORDER OF WHITE BLOOD CELLS, UNSPECIFIED Status: Acute Comment: Improved, continue supportive mgmt, CBC in am (5) Thrombocytopenia Code(s): D69.6 - THROMBOCYTOPENIA, UNSPECIFIED Status: Acute (6) DM I (diabetes mellitus, type I) Status: Chronic Qualifiers: Diabetes mellitus complication status: with unspecified complications Qualified Code(s): E10.8 - Type 1 diabetes mellitus with unspecified complications (7) Dementia Code(s): F03.90 - UNSPECIFIED DEMENTIA WITHOUT BEHAVIORAL DISTURBANCE Status: Chronic Qualifiers: Dementia type: unspecified type (8) Sinus bradycardia Code(s): R00.1 - BRADYCARDIA, UNSPECIFIED Status: Chronic Comment: Continue Tele monitoring, no correlation with current clinical presentation (9) GOYO (acute kidney injury) Code(s): N17.9 - ACUTE KIDNEY FAILURE, UNSPECIFIED Status: Resolved Comment : Improved, IVF's, avoid nephrotoxic meds and limit contrast exposure - Plan * .
[2017-09-01 05:55] LABS: Anion Gap 10 mmol/L (10-20); BUN (Urea Nitrogen) 4 mg/dL (8.4-25.7); Calc. Creatinine Clearance 90 mL/min (70-130); Calcium 8.2 mg/dL (7.8-10.44); Carbon Dioxide 27 mmol/L (23-31); Chloride 105 mmol/L (98-107); Estimated GFR-MDRD Greater than 90; Glucose 209 mg/dL (80-115); Sodium 139 mmol/L (136-145)
[2017-09-01 06:00] LABS: Potassium 2.7 mmol/L (3.5-5.1)
[2017-09-01] MEDS: Potassium Chloride 40 MEQ in Sodium Chloride 0.9% 250 ML 250 ML IVPB SCH ×2 (07:07→11:00)
[2017-09-01] MEDS ORDERED: Potassium Chloride 20 MEQ TAB PER TUBE SCH (08:30)
[2017-09-01] MEDS ORDERED: Magnesium 2 GM/NS 0.9% 100 ML 4 GM in Premix Bag 1 BAG IVPB SCH (08:30)
[2017-09-01] MEDS ORDERED: Magnesium Sulfate 4 GM in Sodium Chloride 0.9% 250 ML 250 ML IVPB SCH (08:45)
[2017-09-01] MEDS ORDERED: Potassium Chloride 40 MEQ in Premix Bag 1 BAG IVPB SCH (09:15)
[2017-09-01] MEDS: Potassium Chloride 20 MEQ in Premix Bag 1 BAG IVPB SCH ×3 (09:30→23:08)
[2017-09-01] MEDS: Stress 600 With Zinc 1 TAB PO SCH (10:19)
[2017-09-01] MEDS: Famotidine/PF 20 mg/2ml Vial SLOW IVP SCH ×2 (10:19→22:02)
--- NOTE | 2017-09-01 11:48 | PDOC.PN ---
- Subjective Encounter Start Date: 09/01/17 Encounter Start Time: 09:40 pt awake and alert, discussed at length with CHARLES regarding PEG, she still wished to proceed. No F/c,no N/V/d/C, still NPO All systems reviewed adn neg x as above - Objective Resuscitation Status: Resuscitation Status DNR:Do Not Resuscitate MAR Reviewed: Yes Vital Signs & Weight: Vital Signs (12 hours) Temp Pulse Resp BP Pulse Ox 09/01/17 08:00 97.4 F L 95 16 09/01/17 07:51 179/98 H 09/01/17 07:48 97.4 F L 95 16 184/93 H 98 09/01/17 03:41 99.4 F 79 19 163/82 H 98 09/01/17 00:00 179/88 H Weight Admit Weight 163 lb Weight 164 lb 11.2 oz I&O: 08/31/17 09/01/17 09/02/17 06:59 06:59 06:59 Intake Total 1030 1200 Balance 1030 1200 Result Diagrams: 09/01/17 04:40 09/01/17 04:40 Additional Labs: Accuchecks 09/01/17 09/01/17 08/31/17 11:21 05:57 21:16 POC Glucose 175 H 178 H 234 H 08/31/17 08/31/17 16:39 11:57 POC Glucose 251 H 243 H Radiology Reviewed by me: Yes EKG Reviewed by me: Yes Phys Exam - Physical Examination Constitutional: NAD HEENT: PERRLA, moist MMs, sclera anicteric, oral pharynx no lesions Neck: no nodes, no JVD, supple, full ROM Respiratory: no wheezing, no rales, no rhonchi, clear to auscultation bilateral Cardiovascular: RRR, no significant murmur, no rub Gastrointestinal: soft, non-tender, no distention, positive bowel sounds Musculoskeletal: no edema, pulses present Neurological: non-focal, normal sensation, moves all 4 limbs Lymphatic: no nodes Psychiatric: normal affect Deviation from normal: awake, alert, oriented to person and place Skin: no rash, normal turgor, cap refill <2 seconds Dx/Plan (1) Acute metabolic encephalopathy Code(s): G93.41 - METABOLIC ENCEPHALOPATHY Status: Resolved Comment: resolved still ruby baseline dementia and better and worse at times (2) Aspiration into airway Code(s): T17.908A - UNSP FB IN RESP TRACT, PART UNSP CAUSING OTH INJURY, INIT Status: Resolved Comment: PEG tube surgically to be placed today? (3) Dysphagia Code(s): R13.10 - DYSPHAGIA, UNSPECIFIED Status: Acute Qualifiers: Dysphagia type: oropharyngeal phase Qualified Code(s): R13.12 - Dysphagia, oropharyngeal phase (4) Neutrophilic leukocytosis Code(s): D72.9 - DISORDER OF WHITE BLOOD CELLS, UNSPECIFIED Status: Acute Comment: Improved, continue supportive mgmt, CBC in am (5) Thrombocytopenia Code(s): D69.6 - THROMBOCYTOPENIA, UNSPECIFIED Status: Acute (6) DM I (diabetes mellitus, type I) Status: Chronic Qualifiers: Diabetes mellitus complication status: with unspecified complications Qualified Code(s): E10.8 - Type 1 diabetes mellitus with unspecified complications (7) Dementia Code(s): F03.90 - UNSPECIFIED DEMENTIA WITHOUT BEHAVIORAL DISTURBANCE Status: Chronic Qualifiers: Dementia type: unspecified type (8) Sinus bradycardia Code(s): R00.1 - BRADYCARDIA, UNSPECIFIED Status: Chronic Comment: Continue Tele monitoring, no correlation with current clinical presentation (9) GOYO (acute kidney injury) Code(s): N17.9 - ACUTE KIDNEY FAILURE, UNSPECIFIED Status: Resolved Comment : Improved, IVF's, avoid nephrotoxic meds and limit contrast exposure - Plan * .
[2017-09-01] MEDS: Dorzolamide HCl/Timolol Maleate 2%/0.5% Ophth Soln 10 ml Bottle R EYE SCH ×2 (13:11→23:47)
[2017-09-01] MEDS: Potassium Chloride 40 MEQ in Dextrose 5%-Lactated Ringers 1,000 ML IV SCH ×2 (13:32→23:07)
[2017-09-01] MEDS ORDERED: PROPOFOL 200 MG/20 ML VIAL ONE (15:46)
[2017-09-01] MEDS ORDERED: Midazolam HCl 2 mg/2 ml Vial ONE (16:34)
[2017-09-01] MEDS ORDERED: Fentanyl 100 MCG/2 ML VIAL ONE (16:34)
[2017-09-01] MEDS ORDERED: Ketamine 50 MG/ML VIAL ONE (16:34)
[2017-09-01] MEDS ORDERED: PROPOFOL 40 ML ONE (16:34)
[2017-09-01] MEDS ORDERED: Lidocaine 2% 10 ML INJ ONE (16:35)
[2017-09-01] MEDS ORDERED: Bupivacaine HCl 0.5%/Epinephrine 1:200,000/PF 30 ml Vial ONE (16:35)
[2017-09-01] MEDS ORDERED: Promethazine HCl 25 MG/ML VIAL IM PRN (17:33)
[2017-09-01] MEDS ORDERED: Promethazine HCl 25 MG/ML VIAL SLOW IVP PRN (17:33)
[2017-09-01] MEDS ORDERED: Ondansetron HCl/PF 4 MG/2 ML Vial IVP PRN (17:33)
[2017-09-01] MEDS: hydrALAZINE 20 MG/ML VIAL SLOW IVP PRN (18:49)
[2017-09-01] MEDS ORDERED: Haloperidol Lactate 5 MG/ML VIAL IM SCH (21:15)
[2017-09-01] MEDS: Donepezil HCl 10 MG TAB PO SCH (22:02)
[2017-09-01] MEDS: Insulin Glargine 10 UNITS in Pre-Filled Syringe 1 EACH SC SCH (22:03)
[2017-09-01] MEDS: Latanoprost 0.005% Ophth Soln 2.5 ml Bottle EA EYE SCH (23:47)
--- NOTE | 2017-09-01 23:57 | OP ---
DATE OF PROCEDURE: 09/01/2017 PREOPERATIVE DIAGNOSES: Dysphagia, Parkinson's, Alzheimer's. POSTOPERATIVE DIAGNOSES: Dysphagia, Parkinson's Alzheimer's. PROCEDURE: Percutaneous endoscopic gastrostomy tube. SURGEON: Manpreet Lange MD ANESTHESIA: Intravenous sedation, local 1% Xylocaine. DESCRIPTION OF PROCEDURE: The patient was taken to the operating room where under intravenous sedati on, endoscope placed per os under direct visualization, using air insufflation passed down the esopha madan and the stomach. Initial attempt at placement of PEG tube was unsuccessful. Though, a new locat ion in subxiphoid, a better indentation was appreciated as the patient was more relaxed. Area was pr epared with ChloraPrep. Local anesthetic infiltrated into the skin and subcutaneous tissue. Stab in cision was made. Trocar catheter was introduced percutaneously into the gastric lumen, visualized en doscopically grasping the wire, passed and brought it out through the mouth, connected to the feeding tube after removing the endoscope. Tube was lubricated, brought down through the mouth to esophagus , pulled against the abdominal wall with a fixation device, tube tailored to length, and feeding luly ce was secured. The patient tolerated the procedure well.
[2017-09-02] MEDS: Potassium Chloride 20 MEQ in Premix Bag 1 BAG IVPB SCH (02:13)
[2017-09-02 05:00] LABS: #Eosinphils 0.1 thou/uL (0.0-0.7); #Lymphocytes 1.8 thou/uL (1.20-3.40); #Monocytes 0.6 thou/uL (0.11-0.59); #Neutrophils 5.2 thou/uL (1.40-6.50); %Basophils 0.3 % (0.0-1.0); %Eosinophils 1.5 % (0.0-10.0); %Lymphocytes 23.9 % (21.0-51.0); %Monocytes 7.2 % (0.0-10.0); %Neutrophils 67.1 % (42.0-75.0); Hemoglobin 12.3 g/dL (14.0-18.0); Mean Corpuscular HGB CONC 35.9 g/dL (32.0-36.0); Mean Corpuscular Hemoglobin 31.3 pg (27.0-31.0); Mean Corpuscular Volume 87.3 fL (78.0-98.0); Mean Platelet Volume 7.3 fL (7.4-10.4); Platelet Count 137 thou/uL (130-400); RBC Distribution Width 11.7 % (11.5-14.5); Red Blood Cell (RBC) Count 3.93 mill/uL (4.70-6.10); White Blood Cell (WBC) Count 7.7 thou/uL (4.8-10.8)
[2017-09-02] MEDS: Potassium Chloride 40 MEQ in Dextrose 5%-Lactated Ringers 1,000 ML IV SCH ×3 (05:01→22:38)
[2017-09-02 05:06] LABS: Anion Gap 12 mmol/L (10-20); BUN (Urea Nitrogen) 5 mg/dL (8.4-25.7); Calc. Creatinine Clearance 90 mL/min (70-130); Calcium 8.2 mg/dL (7.8-10.44); Carbon Dioxide 26 mmol/L (23-31); Chloride 105 mmol/L (98-107); Estimated GFR-MDRD Greater than 90; Glucose 137 mg/dL (80-115); Magnesium 1.9 mg/dL (1.6-2.6); Potassium 3.6 mmol/L (3.5-5.1); Sodium 139 mmol/L (136-145)
[2017-09-02] MEDS: Famotidine/PF 20 mg/2ml Vial SLOW IVP SCH ×2 (09:13→22:59)
[2017-09-02] MEDS: Stress 600 With Zinc 1 TAB PO SCH (09:13)
[2017-09-02] MEDS: Dorzolamide HCl/Timolol Maleate 2%/0.5% Ophth Soln 10 ml Bottle R EYE SCH ×2 (09:59→20:29)
[2017-09-02] MEDS: HumaLOG 300 UNITS/3 ML VIAL SC PRN (11:57)
--- NOTE | 2017-09-02 15:23 | PDOC.PN ---
- Subjective Encounter Start Date: 09/02/17 Encounter Start Time: 11:00 Pt had PEG placed last evening, silvia well, no acute events overnight, TF to start today No F/C, no N/V/d/C, noCP or SOB. in restraints, D/Cd after abd binder palced No other events noted - Objective Resuscitation Status: Resuscitation Status DNR:Do Not Resuscitate MAR Reviewed: Yes Vital Signs & Weight: Vital Signs (12 hours) Temp Pulse Resp BP Pulse Ox 09/02/17 14:00 98.7 F 85 18 164/80 H 98 09/02/17 11:13 98.2 F 87 18 171/96 H 98 09/02/17 07:44 98.0 F 102 H 16 170/88 H 98 09/02/17 03:23 98.8 F 85 18 117/61 96 Weight Admit Weight 163 lb Weight 164 lb 11.2 oz I&O: 09/01/17 09/02/17 09/03/17 06:59 06:59 06:59 Intake Total 1200 Balance 1200 Result Diagrams: 09/02/17 04:26 09/02/17 04:26 Additional Labs: Accuchecks 09/02/17 09/02/17 09/02/17 11:18 06:05 03:27 POC Glucose 202 H 163 H 141 H 09/01/17 09/01/17 20:41 18:41 POC Glucose 150 H 165 H Phys Exam - Physical Examination Constitutional: NAD HEENT: PERRLA, moist MMs, sclera anicteric, oral pharynx no lesions Neck: no nodes, no JVD, supple, full ROM Respiratory: no wheezing, no rales, no rhonchi, clear to auscultation bilateral Cardiovascular: RRR, no significant murmur, no rub Gastrointestinal: soft, non-tender, no distention, positive bowel sounds PEG site c/D/I Musculoskeletal: no edema, pulses present Neurological: non-focal, normal sensation, moves all 4 limbs Lymphatic: no nodes Psychiatric: normal affect, A&O x 3 Skin: no rash, normal turgor, cap refill <2 seconds Dx/Plan (1) Acute metabolic encephalopathy Code(s): G93.41 - METABOLIC ENCEPHALOPATHY Status: Resolved Comment: resolved still ruby baseline dementia and better and worse at times (2) Aspiration into airway Code(s): T17.908A - UNSP FB IN RESP TRACT, PART UNSP CAUSING OTH INJURY, INIT Status: Resolved Comment: PEG tube surgically to be placed today? (3) Dysphagia Code(s): R13.10 - DYSPHAGIA, UNSPECIFIED Status: Acute Qualifiers: Dysphagia type: oropharyngeal phase Qualified Code(s): R13.12 - Dysphagia, oropharyngeal phase (4) Neutrophilic leukocytosis Code(s): D72.9 - DISORDER OF WHITE BLOOD CELLS, UNSPECIFIED Status: Acute Comment: Improved, continue supportive mgmt, CBC in am (5) Thrombocytopenia Code(s): D69.6 - THROMBOCYTOPENIA, UNSPECIFIED Status: Acute (6) DM I (diabetes mellitus, type I) Status: Chronic Qualifiers: Diabetes mellitus complication status: with unspecified complications Qualified Code(s): E10.8 - Type 1 diabetes mellitus with unspecified complications (7) Dementia Code(s): F03.90 - UNSPECIFIED DEMENTIA WITHOUT BEHAVIORAL DISTURBANCE Status: Chronic Qualifiers: Dementia type: unspecified type (8) Sinus bradycardia Code(s): R00.1 - BRADYCARDIA, UNSPECIFIED Status: Chronic Comment: Continue Tele monitoring, no correlation with current clinical presentation (9) GOYO (acute kidney injury) Code(s): N17.9 - ACUTE KIDNEY FAILURE, UNSPECIFIED Status: Resolved Comment : Improved, IVF's, avoid nephrotoxic meds and limit contrast exposure - Plan cont current plan of care, plan discussed w/ family, PT/OT * . tube feeds, increase per dietary, to bolus feeds when tolerating. awaiting approval for SNF. Three have accepted. must be out of restraints for 24 hours
--- NOTE | 2017-09-02 16:19 | PRG ---
DATE OF SERVICE: 09/02/2017 SUBJECTIVE: Mr. Black is stable status post PEG tube placement by Dr. Lange. Tolerating the feeds t o 20 mL an hour thus far. He has no complaints. PHYSICAL EXAMINATION: The PEG site is clear. He has got abdominal binder that is replaced. ASSESSMENT: Postop PEG placement by Dr. Lange. PLAN: We will follow on an as needed basis.
[2017-09-02] MEDS: Donepezil HCl 10 MG TAB PO SCH (20:28)
[2017-09-02] MEDS: Latanoprost 0.005% Ophth Soln 2.5 ml Bottle EA EYE SCH (20:29)
[2017-09-02] MEDS: Insulin Glargine 10 UNITS in Pre-Filled Syringe 1 EACH SC SCH (20:31)
[2017-09-03 04:50] LABS: #Eosinphils 0.2 thou/uL (0.0-0.7); #Lymphocytes 1.8 thou/uL (1.20-3.40); #Monocytes 0.6 thou/uL (0.11-0.59); #Neutrophils 4.2 thou/uL (1.40-6.50); %Basophils 0.4 % (0.0-1.0); %Eosinophils 2.8 % (0.0-10.0); %Lymphocytes 26.5 % (21.0-51.0); %Monocytes 8.1 % (0.0-10.0); %Neutrophils 62.2 % (42.0-75.0); Mean Corpuscular HGB CONC 34.7 g/dL (32.0-36.0); Mean Corpuscular Hemoglobin 30.5 pg (27.0-31.0); Mean Corpuscular Volume 87.9 fL (78.0-98.0); Mean Platelet Volume 7.4 fL (7.4-10.4); Platelet Count 140 thou/uL (130-400); RBC Distribution Width 11.7 % (11.5-14.5); Red Blood Cell (RBC) Count 3.94 mill/uL (4.70-6.10); White Blood Cell (WBC) Count 6.8 thou/uL (4.8-10.8)
[2017-09-03 05:05] LABS: Anion Gap 8 mmol/L (10-20); BUN (Urea Nitrogen) 7 mg/dL (8.4-25.7); Calc. Creatinine Clearance 89 mL/min (70-130); Calcium 8.4 mg/dL (7.8-10.44); Carbon Dioxide 27 mmol/L (23-31); Chloride 103 mmol/L (98-107); Estimated GFR-MDRD Greater than 90; Glucose 243 mg/dL (80-115); Magnesium 1.6 mg/dL (1.6-2.6); Potassium 3.8 mmol/L (3.5-5.1); Sodium 134 mmol/L (136-145)
[2017-09-03] MEDS: HumaLOG 300 UNITS/3 ML VIAL SC PRN ×2 (06:45→17:29)
[2017-09-03] MEDS: Dorzolamide HCl/Timolol Maleate 2%/0.5% Ophth Soln 10 ml Bottle R EYE SCH ×2 (08:47→20:19)
[2017-09-03] MEDS: Stress 600 With Zinc 1 TAB PO SCH (08:48)
[2017-09-03] MEDS: Famotidine/PF 20 mg/2ml Vial SLOW IVP SCH (13:14)
[2017-09-03] MEDS: hydrALAZINE 20 MG/ML VIAL SLOW IVP PRN (17:27)
[2017-09-03] MEDS: Famotidine 20 MG TAB PO SCH (20:19)
[2017-09-03] MEDS: Donepezil HCl 10 MG TAB PO SCH (20:19)
[2017-09-03] MEDS: Latanoprost 0.005% Ophth Soln 2.5 ml Bottle EA EYE SCH (20:20)
[2017-09-03] MEDS: Insulin Glargine 10 UNITS in Pre-Filled Syringe 1 EACH SC SCH (21:16)
[2017-09-03] MEDS: Potassium Chloride 40 MEQ in Dextrose 5%-Lactated Ringers 1,000 ML IV SCH (21:17)
[2017-09-04] MEDS: HumaLOG 300 UNITS/3 ML VIAL SC PRN ×2 (04:07→13:58)
[2017-09-04] MEDS: Famotidine 20 MG TAB PO SCH ×2 (08:10→21:09)
[2017-09-04] MEDS: Dorzolamide HCl/Timolol Maleate 2%/0.5% Ophth Soln 10 ml Bottle R EYE SCH ×2 (08:12→21:09)
[2017-09-04] MEDS: hydrALAZINE 20 MG/ML VIAL SLOW IVP PRN (08:18)
--- NOTE | 2017-09-04 08:33 | RAD ---
PORTABLE CHEST: Date: 09/04/17 HISTORY: Possible aspiration. Shortness of breath. COMPARISON: 08/25/17. FINDINGS: Lung francisco are well aerated and clear. No infiltrate. No evidence of vascular congestion. Heart size upper normal and stable. IMPRESSION: No evidence of acute process. POS: [facility]
[2017-09-04] MEDS: Stress 600 With Zinc 1 TAB PO SCH (10:22)
--- NOTE | 2017-09-04 13:26 | PDOC.PN ---
- Subjective Encounter Start Date: 09/04/17 Encounter Start Time: 13:24 Mr. Black was seen today in follow-up of advanced Parkinson's disease and dementia. He has been a bit more lethargic today than yesterday according to his . He is alert for me, and answering questions clearly. He denies having any pain, and denies shortness of breath, but says " I have been having some congestion". - Objective Resuscitation Status: Resuscitation Status DNR:Do Not Resuscitate MAR Reviewed: Yes Vital Signs & Weight: Vital Signs (12 hours) Temp Pulse Resp BP BP Pulse Ox 09/04/17 11:30 97.6 F 96 20 143/93 H 97 09/04/17 08:18 96 169/100 H 09/04/17 08:01 98.9 F 96 18 169/100 H 97 09/04/17 08:00 97.6 F 96 20 97 09/04/17 04:00 98.1 F 100 20 178/106 H 97 Weight Admit Weight 163 lb Weight 164 lb 11.2 oz I&O: 09/03/17 09/04/17 09/05/17 06:59 06:59 06:59 Intake Total 600 Balance 600 Result Diagrams: 09/03/17 04:18 09/03/17 04:18 Additional Labs: Accuchecks 09/04/17 09/04/17 09/03/17 11:36 03:54 19:39 POC Glucose 223 H 270 H 237 H 09/03/17 17:30 POC Glucose 240 H Phys Exam - Physical Examination HEENT: PERRLA + rhonchi bilaterally no wheezing no rales Cardiovascular: RRR, no significant murmur, no rub Gastrointestinal: soft, non-tender, no distention, positive bowel sounds Musculoskeletal: edema present Dx/Plan (1) Parkinson disease Code(s): G20 - PARKINSON'S DISEASE Status: Acute (2) Dysphagia Code(s): R13.10 - DYSPHAGIA, UNSPECIFIED Status: Acute Qualifiers: Dysphagia type: oropharyngeal phase Qualified Code(s): R13.12 - Dysphagia, oropharyngeal phase (3) DM I (diabetes mellitus, type I) Status: Chronic Qualifiers: Diabetes mellitus complication status: with unspecified complications Qualified Code(s): E10.8 - Type 1 diabetes mellitus with unspecified complications (4) Dementia Code(s): F03.90 - UNSPECIFIED DEMENTIA WITHOUT BEHAVIORAL DISTURBANCE Status: Chronic Qualifiers: Dementia type: unspecified type - Plan * Dyphagia- likely as a result of advanced Parkinson's disease- he has a PEG tube now, he had some difficulty with tube feeding last night, but will try re- starting tube feeding today * DM- continue insulin and sliding scale * CXR- negative for infiltrate or effusion * Awaiting placement.
[2017-09-04] MEDS: Acetaminophen 500 MG TAB PO PRN (16:22)
[2017-09-04] MEDS: Potassium Chloride 40 MEQ in Dextrose 5%-Lactated Ringers 1,000 ML IV SCH (17:28)
[2017-09-04 18:41] LABS: Bilirubin Negative (Negative); Blood, Urine Negative (Negative); Clarity CLEAR (Clear); Glucose, Urine (Dipstick) 250 mg/dL (Negative); Leukocyte Negative (Negative); Nitrite Negative (Negative); Protein, Urine (Dipstick) Negative (Neg-Trace); Specific Gravity, Urine 1.014 (1.002-1.036); Urobilinogen 0.2 mg/dL (0.2-1.0)
--- NOTE | 2017-09-04 18:42 | PDOC.EVN ---
Event Note - Event Note Event Note: I spoke with the patient's coupon collection clerk and CHARLES Watts, about the patient's prognosis. Due to his advanced parkinson's disease and dementia, he has ahd difficulty swallowing, and she recommended having a PEG tube placed. She notes that his mental status has been waxing and wanning even after the PEG tube, and also notes he has been having some difficulty clearing his secretions, and is still at risk for aspiration. She is now beginning to believe that Hospice may be a reasonable alternative. Will continue to monitor his progress. His code status is still DNR. ACP time 20 minutes.
[2017-09-04 18:43] LABS: Bacteria/HPF None Seen HPF (None Seen); Hyaline Casts/LPF 0-3 HYALINE CAST LPF (0-3 Hyaline); RBC/HPF 0-3 HPF (0-3)
[2017-09-04 19:04] LABS: Transitional Epithelial 0-3 HPF (0-3)
[2017-09-04] MEDS: Donepezil HCl 10 MG TAB PO SCH (21:09)
[2017-09-04] MEDS: Insulin Glargine 10 UNITS in Pre-Filled Syringe 1 EACH SC SCH (21:10)
[2017-09-04] MEDS: Latanoprost 0.005% Ophth Soln 2.5 ml Bottle EA EYE SCH (21:11)
[2017-09-05] MEDS: HumaLOG 300 UNITS/3 ML VIAL SC PRN (08:32)
[2017-09-05] MEDS: Potassium Chloride 40 MEQ in Dextrose 5%-Lactated Ringers 1,000 ML IV SCH (08:33)
[2017-09-05] MEDS: Acetaminophen 500 MG TAB PO PRN (08:34)
[2017-09-05] MEDS: Stress 600 With Zinc 1 TAB PO SCH (08:37)
[2017-09-05] MEDS: Famotidine 20 MG TAB PO SCH (08:37)
[2017-09-05] MEDS: Dorzolamide HCl/Timolol Maleate 2%/0.5% Ophth Soln 10 ml Bottle R EYE SCH (08:39)
--- NOTE | 2017-09-05 11:19 | PDOC.PN ---
- Subjective Encounter Start Date: 09/05/17 Encounter Start Time: 11:18 Mr. Black was seen today in follow-up. He is awake, a bit lethargic,was able to answer a few questions. - Objective Resuscitation Status: Resuscitation Status DNR:Do Not Resuscitate MAR Reviewed: Yes Vital Signs & Weight: Vital Signs (12 hours) Temp Pulse Resp BP Pulse Ox 09/05/17 08:00 98.0 F 106 H 18 99 09/05/17 07:48 98.0 F 106 H 18 143/96 H 99 09/05/17 04:00 98.8 F 104 H 18 117/61 96 09/05/17 00:00 99 F 106 H 18 104/68 95 Weight Admit Weight 163 lb Weight 164 lb 11.2 oz I&O: 09/04/17 09/05/17 09/06/17 06:59 06:59 06:59 Intake Total 600 2070 Balance 600 2070 Result Diagrams: 09/03/17 04:18 09/03/17 04:18 Additional Labs: Accuchecks 09/04/17 09/04/17 09/04/17 19:30 17:13 11:36 POC Glucose 219 H 166 H 223 H Phys Exam - Physical Examination HEENT: PERRLA + rhonchi Bilaterally, Cardiovascular: RRR, no significant murmur, no rub Gastrointestinal: soft, non-tender, positive bowel sounds Musculoskeletal: no edema Dx/Plan (1) Parkinson disease Code(s): G20 - PARKINSON'S DISEASE Status: Acute (2) Dysphagia Code(s): R13.10 - DYSPHAGIA, UNSPECIFIED Status: Acute Qualifiers: Dysphagia type: oropharyngeal phase Qualified Code(s): R13.12 - Dysphagia, oropharyngeal phase (3) DM I (diabetes mellitus, type I) Status: Chronic Qualifiers: Diabetes mellitus complication status: with unspecified complications Qualified Code(s): E10.8 - Type 1 diabetes mellitus with unspecified complications (4) Dementia Code(s): F03.90 - UNSPECIFIED DEMENTIA WITHOUT BEHAVIORAL DISTURBANCE Status: Chronic Qualifiers: Dementia type: unspecified type - Plan * Dysphagia- he is s/p PEG tube placement * Advanced Parkinson's disease- slow decline * Patient has been accepted to the shelter facility ([facility] ).
[2017-09-05 11:56] VITALS: BP 101/68; TEMP 99.1
--- NOTE | 2017-09-05 12:20 | DIS ---
DATE OF ADMISSION: 08/25/2017 DATE OF DISCHARGE: 09/05/2017 PRIMARY CARE PHYSICIAN: Dr. Martinez. DISCHARGE DISPOSITION: To [facility]. DISCHARGE DIAGNOSES: 1. Dysphagia. 2. Advanced Parkinson's disease. 3. History of recurrent aspiration. 4. Diabetes mellitus, insulin-dependent. 5. History of coronary artery disease. DISCHARGE MEDICATIONS: Include sertraline 50 mg at bedtime, pravastatin 40 mg daily, omeprazole 40 m g daily, Myrbetriq 50 mg at bedtime, memantine/donepezil 28/10 mg at bedtime, Lantus insulin 20 units subcu at bedtime, dorzolamide eye drops to the right eye twice a day, Folbic 1 mg daily, vitamin D3 5000 units daily, and Lumigan ophthalmic 0.1% to each eye at bedtime. PROCEDURES DONE DURING ADMISSION: The patient had a CT scan of the brain, which showed no acute intr acranial process. There is no evidence of any infarct, hemorrhage, or fluid collection. The patient also had a modified barium swallow, in which there was some laryngeal penetration and aspiration as well as persistent pooling of contrast in the vallecula and piriform sinuses. The patient also had a n upper endoscopy with PEG tube placement. CODE STATUS: DNR. ALLERGIES: No known drug allergies. HOSPITAL COURSE: Mr. Black is a pleasant 71-year-old gentleman, who was brought to the emergency room , as he was becoming more and more lethargic, and the full details of which are outlined in the histo ry and physical by my colleague, Dr. Foss. He was admitted and initially evaluated for any signs of infection; this was ruled out. He was found to be dehydrated and was admitted with acute renal failu re. His admission creatinine was 1.4. He was hydrated and discharge creatinine was 0.83. His medic al power of disability attorney was contacted and the decision was made for a PEG tube to be placed due to dysph agia, which is likely as a result of his advanced Parkinson's disease. The PEG tube was placed and t he patient then was subsequently discharged to the [facility] nursing facility.
--- NOTE | 2017-09-10 12:46 | EKG ---
Test Reason : Blood Pressure : / mmHG Vent. Rate : 044 BPM Atrial Rate : 046 BPM P-R Int : 000 ms QRS Dur : 126 ms QT Int : 492 ms P-R-T Axes : 000 -50 020 degrees QTc Int : 420 ms Undetermined rhythm Right bundle branch block Left anterior fascicular block Bifascicular block Abnormal ECG Confirmed by MELISSA ALVARADO ([id number]), dictionary editor CAROLYN GARCIA ([id number]) on 09/10/2017 12:45:39 PM Referred By: Confirmed By:MELISSA ALVARADO
--- NOTE | 2017-09-10 12:46 | EKG ---
Test Reason : Blood Pressure : / mmHG Vent. Rate : 045 BPM Atrial Rate : 045 BPM P-R Int : 000 ms QRS Dur : 126 ms QT Int : 488 ms P-R-T Axes : 000 -55 -09 degrees QTc Int : 422 ms Marked sinus bradycardia with A-V dissociation and Wide QRS rhythm Right bundle branch block Left anterior fascicular block Bifascicular block Cannot rule out Inferior infarct (masked by fascicular block?) , age undetermined Abnormal ECG Confirmed by MELISSA ALVARADO ([id number]), publication editor CAROLYN GARCIA ([id number]) on 09/10/2017 12:45:34 PM Referred By: Confirmed By:MELISSA ALVARADO
--- NOTE | 2017-09-10 12:46 | EKG ---
Test Reason : Blood Pressure : / mmHG Vent. Rate : 046 BPM Atrial Rate : 053 BPM P-R Int : 000 ms QRS Dur : 114 ms QT Int : 498 ms P-R-T Axes : 000 -47 -13 degrees QTc Int : 435 ms Undetermined rhythm Left axis deviation Incomplete right bundle branch block Inferior infarct , age undetermined Abnormal ECG Confirmed by MELISSA ALVARADO ([id number]), video tape editor CAROLYN GARCIA ([id number]) on 09/10/2017 12:45:33 PM Referred By: Confirmed By:MELISSA ALVARADO
== END 2017-09-05 15:24 | DRG 682 ==
LOC: ERS 11:41 → ERHOLD 13:49 → 2NO 19:12 → OBSVTOIN 08-26 08:28 → T4-A 09-02 13:27
PROVIDERS: ADMIT Family Medicine; ATTEND Family Medicine
PROC: 0DH63UZ Insertion of Feeding Device into Stomach, Percutaneous Approach (ICD-10-PCS; principal; 2017-09-01)
PROC: 0DB68ZX Excision of Stomach, Via Natural or Artificial Opening Endoscopic, Diagnostic (ICD-10-PCS; 2017-09-01)
DX: N17.9 Acute kidney failure, unspecified (principal); G93.41 Metabolic encephalopathy; E46 Unspecified protein-calorie malnutrition; Z68.23 Body mass index [BMI] 23.0-23.9, adult; R13.12 Dysphagia, oropharyngeal phase; G20 Parkinson's disease; E86.0 Dehydration; Z51.5 Encounter for palliative care; E10.9 Type 1 diabetes mellitus without complications; I25.10 Atherosclerotic heart disease of native coronary artery without angina pectoris; G30.9 Alzheimer's disease, unspecified; F02.80 Dementia in other diseases classified elsewhere, unspecified severity, without behavioral disturbance, psychotic disturbance, mood disturbance, and anxiety; K31.7 Polyp of stomach and duodenum; D69.6 Thrombocytopenia, unspecified; R00.1 Bradycardia, unspecified; Z66 Do not resuscitate; Z99.3 Dependence on wheelchair; I25.2 Old myocardial infarction; Z79.4 Long term (current) use of insulin; Z79.899 Other long term (current) drug therapy
CPT/HCPCS: 36415; 36416; 51701; 70450; 71045; 74230; 80048; 80053; 81001; 81003; 82550; 82553; 83690; 83735; 84443; 84484; 85007; 85025; 85027; 87040; 87086; 88305; 88312; 93005; 96360; A4216; G8978-GP-CM; G8979-GP-CL; G8996-GN-CM; G8996-GN-CN; G8997-GN-CK; G8997-GN-CM; J0360; J0670; J0696; J1630; J2001; J2060; J2250; J2704; J3010; J3475; J3480; J7042; J7050; S0028

== ENCOUNTER 2017-10-01 05:00 | Inpatient (IN) | payer MEDICARE, BC ==
[2017-10-01 06:14] LABS: #Eosinphils 0.1 thou/uL (0.0-0.7); #Lymphocytes 1.2 thou/uL (1.20-3.40); #Monocytes 0.7 thou/uL (0.11-0.59); #Neutrophils 11.6 thou/uL (1.40-6.50); %Basophils 0.2 % (0.0-1.0); %Eosinophils 0.6 % (0.0-10.0); %Lymphocytes 8.8 % (21.0-51.0); %Monocytes 4.9 % (0.0-10.0); %Neutrophils 85.4 % (42.0-75.0); Hemoglobin 13.7 g/dL (14.0-18.0); Mean Corpuscular HGB CONC 35.2 g/dL (32.0-36.0); Mean Corpuscular Hemoglobin 32.1 pg (27.0-31.0); Mean Corpuscular Volume 91.2 fL (78.0-98.0); Mean Platelet Volume 8.9 fL (7.4-10.4); Platelet Count 184 thou/uL (130-400); RBC Distribution Width 13.2 % (11.5-14.5); Red Blood Cell (RBC) Count 4.28 mill/uL (4.70-6.10); White Blood Cell (WBC) Count 13.5 thou/uL (4.8-10.8)
[2017-10-01 06:22] LABS: Bilirubin Negative (Negative); Blood, Urine Negative (Negative); Clarity CLEAR (Clear); Glucose, Urine (Dipstick) 250 mg/dL (Negative); Leukocyte Negative (Negative); Nitrite Negative (Negative); Protein, Urine (Dipstick) Trace mg/dL (Neg-Trace); Specific Gravity, Urine 1.014 (1.002-1.036); pH, Urine 6.5 (5.0-9.0)
[2017-10-01 06:29] LABS: ALT (SGPT) 33 U/L (8-55); AST (SGOT) 29 U/L (5-34); Albumin 3.8 g/dL (3.4-4.8); Alkaline Phosphatase 106 U/L (40-150); Anion Gap 13 mmol/L (10-20); BUN (Urea Nitrogen) 25 mg/dL (8.4-25.7); Bilirubin, Total 0.5 mg/dL (0.2-1.2); Calc. Creatinine Clearance 0 mL/min (70-130); Calcium 9.4 mg/dL (7.8-10.44); Carbon Dioxide 30 mmol/L (23-31); Chloride 96 mmol/L (98-107); Estimated GFR-MDRD 75; Globulin 3.3 g/dL (2.4-3.5); Glucose 260 mg/dL (80-115); Lipase 21 U/L (8-78); Potassium 4.3 mmol/L (3.5-5.1); Protein, Total 7.1 g/dL (5.8-8.1); Sodium 135 mmol/L (136-145)
[2017-10-01 06:33] LABS: CKMB 2.2 ng/mL (0-6.6); Troponin I 0.013 ng/mL (< 0.028)
--- NOTE | 2017-10-01 08:46 | CT ---
CT ANGIOGRAM THORAX WITH IV CONTRAST AND 3D RECONSTRUCTIONS: 10/01/2017 HISTORY: End-stage Parkinson disease. Upper airway congestion. Trouble breathing at half-way. COMPARISON: None available. FINDINGS: There is artifact through the upper lobe pulmonary arteries due to dense contrast in the IVC, but no filling defects are appreciated within the pulmonary arteries to suggest a pulmonary embolus. Vascular calcifications are seen at the aortic arch and descending thoracic aorta, as well as involvi ng the coronary arteries. The thoracic aorta is normal in caliber without evidence of an aortic diss ection. There is atherosclerotic plaque involving the proximal visualized upper abdominal aorta. There is no evidence of lymphadenopathy. There are patchy ground glass opacities seen within the right lower lobe and to a much lesser extent in the left lower lobe, which may be related to an infectious or inflammatory process. No pleural ef fusion is identified. There is a tiny, less than 4 mm, pulmonary nodule at the posterolateral aspect of the right lower lob e, which is too small to characterize. No additional discrete pulmonary nodule or mass is seen. Degenerative changes are seen in the spine. There is deformity of the right proximal humerus, which may be related to a remote history of prior injury and fracture. There is an increased density focus seen in the dome of the liver and in the region of the right hemidiaphragm. However, on coronal nilam ges, this likely represents a small focal area of pleural thickening, as opposed to a hepatic lesion. A gastrostomy tube is noted in place. There is evidence of a prior cholecystectomy. IMPRESSION: 1. No CT evidence of a pulmonary embolus. 2. Ground glass opacities in the lower lobes bilaterally, greater on the right, which may be related to an infectious or inflammatory process. 3. Mild thickening of the distal esophagus. This is nonspecific. Direct visualization would be hel pful for further evaluation. POS: JOAN
[2017-10-01] MEDS ORDERED: Vancomycin HCl 1 GM in Premix Bag 1 BAG IVPB SCH (09:45)
[2017-10-01] MEDS ORDERED: Enoxaparin Sodium 40 MG/0.4 ML SYRINGE SC SCH (10:00)
[2017-10-01 10:05] VITALS: BMI 21.3
[2017-10-01] MEDS: Sodium Chloride 0.9% 1,000 ML IV SCH ×2 (10:19→23:42)
[2017-10-01] MEDS ORDERED: VANCOMYCIN IVPB PRN (10:24)
--- NOTE | 2017-10-01 10:28 | RAD ---
UPRIGHT PORTABLE CHEST ONE VIEW: HISTORY: A 71-year-old male with a history of dyspnea. Upper airway congestion. Trouble breathing. COMPARISON: 09/04/2017 FINDINGS: There is rotation to the left. Monitor leads overly the chest. Deformity of the right humeral head and neck, probably related to old trauma. No confluent pneumonia, overt edema, or pleural effusion. IMPRESSION: No significant acute intrathoracic disease. Stable from prior study. POS: JOAN
[2017-10-01] MEDS ORDERED: Vancomycin HCl 500 MG in Sodium Chloride 0.9% 100 ML IVPB SCH (10:30)
[2017-10-01] MEDS: Piperacillin/Tazobactam 3.375 GM in Sodium Chloride 0.9% 100 ML IVPB SCH ×3 (11:28→23:41)
[2017-10-01] MEDS ORDERED: ISOVUE-370 76%-LOCM 1 ML ONE (11:41)
[2017-10-01] MEDS ORDERED: Acetaminophen 325 MG Suppository PR PRN (12:06)
--- NOTE | 2017-10-01 12:24 | HP ---
CHIEF COMPLAINT: Cough and shortness of breath. HISTORY: This patient is a 71-year-old male with progressive and end-stage Parkinson's disease with significant debility. The patient was admitted here earlier in the month of September, at which time he w as found to be dehydrated and having significant aspiration issues confirmed by speech therapy and im aging. At that time, the patient had a PEG tube placed and rather than being discharged to home was discharged to [facility]. The patient has a longtime friend and caregiver, who is present and indic ates that the patient has not had any good days of bouncing back as he used to, since he has been out of the hospital the last time. She has watched him to have some progressive decline, and ultimately , noted that he was having some respiratory issues and a significant upper airway noise. His O2 sats were monitored at the [facility] at that time and found to be in the 80s, and subsequently, the pa alena was brought to the emergency department. The patient is nonverbal and cannot give any addition al information himself. REVIEW OF SYSTEMS: Not obtainable given the patient's nonverbal status. PAST MEDICAL HISTORY: Notable for the, 1. Advanced Parkinson's disease with immobilization. Patient has been wheelchair bound for an exten ded period. 2. Dementia, likely related to the Parkinson's or Alzheimer's. 3. Diabetes mellitus. 4. History of coronary artery disease with myocardial infarction. 5. History of aspiration. PAST SURGICAL HISTORY: Cholecystectomy and PEG placement. FAMILY HISTORY: Notable for diabetes. ALLERGIES: None. MEDICATIONS: Still needing some confirmation, but appeared to be sertraline 50 mg at bedtime, pravas tatin 40 mg every day, omeprazole 40 mg every day, Myrbetriq 50 mg at bedtime, amantadine, donepezil 28-10 one p.o. at bedtime, Lantus 20 units at bedtime, dorzolamide, timolol eye drops 1 drop right ey e b.i.d., multivitamin 1 p.o. daily, vitamin D3 5000 units every day, Lumigan eye drops 1 drop each e ye at bedtime. PHYSICAL EXAMINATION: VITAL SIGNS: BP is 128/89, pulse 114, respirations 22, O2 sat presently 97% on room air. GENERAL APPEARANCE: The patient is supine with his mouth gaping. He is not interactive with verbal or tactile stimuli. He does have some audible upper airway noise with ineffective cough. HEENT: Pupils are sluggish, but reactive. He has no OP lesions. NECK: Supple and symmetric. HEART: Tachycardic without murmurs, gallops, or rubs. LUNG EXAM: A bit compromised by his inability to fully cooperate, but has some basilar rales noted. ABDOMEN: Soft, nondistended, with diminished but present bowel sounds. PEG tube is in place and the site appears healthy. SKIN: Warm and dry without significant edema or skin lesions. LABORATORY DATA: White count 13.5, hemoglobin 13.7, platelets 184. D-dimer is 0.71. Sodium 135, po tassium 4.3, chloride 96, CO2 is 30, BUN 25, creatinine 0.99, glucose 260, lactic acid 1.6, calcium 9 .4, magnesium 2.0. LFTs normal. Lipase 21. Urinalysis only shows some glucose. CTA of the chest r eveals no pulmonary embolus. There are ground-glass opacities in the lower lobes bilaterally, greate r on the right and mild thickening of the distal esophagus, which is nonspecific. IMPRESSION AND PLAN: 1. Altered mental status. This patient has a history of advanced Parkinson's disease and dementia. He appears to be end-stage. His decline, at this moment, is likely related to some infectious proce ss. 2. Pneumonia. The patient had hypoxia, audible airway noise, and CT scan showing bibasilar opacitie s, worse on the right. Given his history of dysphagia, I strongly suspect the patient has some degre e of aspiration pneumonia and has an ineffective cough. I have talked to the patient's caregiver, wh o had delegated authority from the patient's to make medical decisions. She is contemplating ho dylan and has already spoken to them. We will go ahead and treat him for the time being for aspirati on pneumonia with vancomycin to cover methicillin-resistant Staphylococcus aureus given the fact that patient was in a communal health care setting and Zosyn to cover aspiration and other potential heal th care-acquired bacteria. Given that I suspect this is more likely aspiration and hospital-acquired , we are comfortable keeping him with that regimen for now. 3. Diabetes mellitus. We will continue the patient's regimen and add sliding scale and Accu-Cheks. 4. End-stage Parkinson's disease. Again, the patient may be moved to a hospice setting soon pending family and cold meat cook's decisions. 5. End-stage dementia. 6. Hyperlipidemia. We will continue with the pravastatin. The patient is DO NOT RESUSCITATE. The patient has an out of facility DO NOT RESUSCITATE and was ma de DO NOT RESUSCITATE previously. The patient's lives in [place]. We will attempt to contact her, as they apparently have been estranged for 20 years and she has delegated decision making meri rachel to the patient's friend and caregiver here locally. I will need to try to confirm that.
[2017-10-02] MEDS: Piperacillin/Tazobactam 3.375 GM in Sodium Chloride 0.9% 100 ML IVPB SCH ×3 (05:37→17:38)
[2017-10-02 09:17] LABS: #Eosinphils 0.1 thou/uL (0.0-0.7); #Lymphocytes 1.3 thou/uL (1.20-3.40); #Monocytes 0.5 thou/uL (0.11-0.59); %Basophils 0.3 % (0.0-1.0); %Eosinophils 1.6 % (0.0-10.0); %Lymphocytes 19.4 % (21.0-51.0); %Monocytes 6.5 % (0.0-10.0); %Neutrophils 72.2 % (42.0-75.0); Hemoglobin 12.1 g/dL (14.0-18.0); Mean Corpuscular HGB CONC 34.9 g/dL (32.0-36.0); Mean Corpuscular Hemoglobin 32.3 pg (27.0-31.0); Mean Corpuscular Volume 92.6 fL (78.0-98.0); Mean Platelet Volume 8.9 fL (7.4-10.4); Platelet Count 137 thou/uL (130-400); RBC Distribution Width 13.1 % (11.5-14.5); Red Blood Cell (RBC) Count 3.74 mill/uL (4.70-6.10); White Blood Cell (WBC) Count 6.9 thou/uL (4.8-10.8)
[2017-10-02 09:40] LABS: Anion Gap 12 mmol/L (10-20); BUN (Urea Nitrogen) 15 mg/dL (8.4-25.7); Calc. Creatinine Clearance 82 mL/min (70-130); Calcium 8.8 mg/dL (7.8-10.44); Carbon Dioxide 24 mmol/L (23-31); Chloride 105 mmol/L (98-107); Estimated GFR-MDRD Greater than 90; Glucose 147 mg/dL (80-115); Potassium 3.8 mmol/L (3.5-5.1); Sodium 137 mmol/L (136-145)
[2017-10-02] MEDS: Enoxaparin Sodium 40 MG/0.4 ML SYRINGE SC SCH (09:56)
[2017-10-02] MEDS: Vancomycin HCl 1.5 GM in Sodium Chloride 0.9% 250 ML 300 ML IVPB SCH (09:56)
[2017-10-02] MEDS ORDERED: Prevnar 13-Val Conj/PF 0.5 ML SYRINGE IM ONE (12:00)
--- NOTE | 2017-10-02 15:11 | PDOC.PN ---
- Subjective Encounter Start Date: 10/02/17 Encounter Start Time: 15:09 Patient not interactive. His caregiver (Stefanie). She says he is only interactive when he being turned. - Objective Vital Signs & Weight: Vital Signs (12 hours) Temp Pulse Resp BP Pulse Ox 10/02/17 12:52 97.8 F 85 17 125/61 97 10/02/17 07:50 97.8 F 85 17 100 10/02/17 07:39 97.8 F 93 16 168/94 H 100 10/02/17 05:34 96 10/02/17 04:00 97.8 F 94 18 125/70 96 Weight Weight 153 lb 3.2 oz I&O: 10/01/17 10/02/17 10/03/17 06:59 06:59 06:59 Intake Total 783 Balance 783 Result Diagrams: 10/02/17 08:14 10/02/17 08:14 Phys Exam - Physical Examination Constitutional: NAD Appears to be sleeping all the time. Does not respond to modest stim. Neck: no JVD, supple Respiratory: no wheezing Minimal basilar rales. Cardiovascular: RRR, no significant murmur Gastrointestinal: soft, non-tender, no distention, positive bowel sounds PEG Dx/Plan (1) Aspiration pneumonia Code(s): J69.0 - PNEUMONITIS DUE TO INHALATION OF FOOD AND VOMIT Status: Acute (2) Dysphagia Code(s): R13.10 - DYSPHAGIA, UNSPECIFIED Status: Acute Qualifiers: Dysphagia type: oropharyngeal phase Qualified Code(s): R13.12 - Dysphagia, oropharyngeal phase (3) Parkinson disease Code(s): G20 - PARKINSON'S DISEASE Status: Acute (4) Dementia Code(s): F03.90 - UNSPECIFIED DEMENTIA WITHOUT BEHAVIORAL DISTURBANCE Status: Chronic Qualifiers: Dementia type: unspecified type - Plan * Improved. Less distress and WBC decreased. No fever or chills. * Discussed with Stefanie. Will continue with the IV antibiotics for now. * Caregiver says that she has talked to the patient's estranged . She is apparently in agreement with the decision to consider hospice care. The caregiver will talk with the palliative care team and CM tomorrow.
--- NOTE | 2017-10-02 15:21 | PDOC.EVN ---
Event Note - Event Note Event Note: Had a long discussion with the patient's caregiver regarding advanced care planning. She is strongly considering hospice care. She had considered this before the PEG was placed. She says his estranged was in favor of hospice prior to the PEG placement, but she had delegated the decisions to the caregiver. The caregiver wanted to give him a chance. She understands now that he can continue to aspirate in spite of the PEG. She has largely made her decision, but will wait on finalizing that until tomorrow when she can talk with [facility], the palliative care team and the rn case manager. Time spent in ACP was 17 minutes.
[2017-10-02] MEDS: Sodium Chloride 0.9% 1,000 ML IV SCH (17:38)
[2017-10-02] MEDS ORDERED: Dextrose 50% Abboject 50 ML SYRINGE SLOW IVP PRN (17:43)
[2017-10-02] MEDS ORDERED: Dextrose 5% in Water 1,000 ML IV PRN (17:43)
[2017-10-03] MEDS: Piperacillin/Tazobactam 3.375 GM in Sodium Chloride 0.9% 100 ML IVPB SCH ×4 (00:15→18:46)
[2017-10-03] MEDS: Sodium Chloride 0.9% 1,000 ML IV SCH ×2 (07:14→13:33)
[2017-10-03 09:21] LABS: Vancomycin, Trough 10.7 ug/mL
[2017-10-03] MEDS: Vancomycin HCl 1.5 GM in Sodium Chloride 0.9% 250 ML 300 ML IVPB SCH ×2 (09:31→09:39)
[2017-10-03] MEDS: Enoxaparin Sodium 40 MG/0.4 ML SYRINGE SC SCH (09:38)
[2017-10-03] MEDS: Vancomycin HCl 1 GM in Premix Bag 1 BAG IVPB SCH ×2 (09:40→21:19)
--- NOTE | 2017-10-03 10:14 | PDOC.PN ---
- Subjective Encounter Start Date: 10/03/17 Encounter Start Time: 10:12 Patient awake. Says he's "wonderful". Denies pain. No further verbal interaction. - Objective Vital Signs & Weight: Vital Signs (12 hours) Temp Pulse Resp BP BP BP Pulse Ox 10/03/17 08:00 97.9 F 100 18 173/83 H 100 10/03/17 04:00 97.9 F 88 18 147/82 H 99 10/03/17 00:00 97.5 F L 82 18 147/82 H 97 Weight Admit Weight 153 lb 3.2 oz Weight 153 lb 3.2 oz I&O: 10/02/17 10/03/17 10/04/17 06:59 06:59 06:59 Intake Total 783 Balance 783 Result Diagrams: 10/02/17 08:14 10/02/17 08:14 Additional Labs: Accuchecks 10/03/17 10/03/17 10/02/17 06:30 00:33 21:05 POC Glucose 154 H 134 H 125 H 10/02/17 18:32 POC Glucose 119 H Phys Exam - Physical Examination Constitutional: NAD Awake and somewhat alert. Still appears to dose. Respiratory: no wheezing, no rales, no rhonchi, clear to auscultation bilateral Cardiovascular: RRR, no significant murmur Gastrointestinal: soft, non-tender, no distention, positive bowel sounds Musculoskeletal: no edema Dx/Plan (1) Aspiration pneumonia Code(s): J69.0 - PNEUMONITIS DUE TO INHALATION OF FOOD AND VOMIT Status: Acute Comment: Appears to be improving. May be able to switch to enteral abx and discharge as early as today. Awaiting on caregiver to make some decisions. (2) Dysphagia Code(s): R13.10 - DYSPHAGIA, UNSPECIFIED Status: Acute Qualifiers: Dysphagia type: oropharyngeal phase Qualified Code(s): R13.12 - Dysphagia, oropharyngeal phase Comment: PEG in place. Will try to resume enteral feeds today. [employer] consulted. (3) Parkinson disease Code(s): G20 - PARKINSON'S DISEASE Status: Acute (4) Dementia Code(s): F03.90 - UNSPECIFIED DEMENTIA WITHOUT BEHAVIORAL DISTURBANCE Status: Chronic Qualifiers: Dementia type: unspecified type - Plan * above.
[2017-10-03] MEDS ORDERED: Non-Formulary Item 1 EACH (Sertraline Hcl [Sertraline Hcl] 50 MG) PO SCH (21:00)
[2017-10-03] MEDS ORDERED: Non-Formulary Item 1 EACH (Mirabegron [Myrbetriq] 50 MG) PO SCH (21:00)
[2017-10-03] MEDS ORDERED: DONEPEZIL HCL PO SCH (21:00)
[2017-10-03] MEDS ORDERED: [UNRECOGNIZED DRUG - OTHER] PO SCH (21:00)
[2017-10-03] MEDS ORDERED: MEMANTINE HCL PO SCH (21:00)
[2017-10-03] MEDS ORDERED: Non-Formulary Item 1 EACH (Bimatoprost [Lumigan 0.01% Ophth Soln] 1 DROP) EA EYE SCH (21:00)
[2017-10-03] MEDS: Atorvastatin Calcium 10 MG TAB PO SCH (21:16)
[2017-10-03] MEDS: Latanoprost 0.005% Ophth Soln 2.5 ml Bottle EA EYE SCH (21:19)
[2017-10-04] MEDS: Piperacillin/Tazobactam 3.375 GM in Sodium Chloride 0.9% 100 ML IVPB SCH ×5 (05:21→23:13)
[2017-10-04] MEDS: HumaLOG 300 UNITS/3 ML VIAL SC PRN ×2 (05:48→18:04)
[2017-10-04] MEDS ORDERED: CYANOCOBALAMIN PO SCH (09:00)
[2017-10-04] MEDS ORDERED: Pravastatin Sodium 40 MG TAB PO SCH (09:00)
[2017-10-04] MEDS ORDERED: Non-Formulary Item 1 EACH (Omeprazole [Omeprazole] 40 MG) PO SCH (09:00)
[2017-10-04] MEDS ORDERED: FOLIC AC PO SCH (09:00)
[2017-10-04] MEDS ORDERED: Non-Formulary Item 1 EACH (Cholecalciferol (Vitamin D3) [Vitamin D] 5,000 UNITS) PO SCH (09:00)
[2017-10-04] MEDS ORDERED: VIT B6 PO SCH (09:00)
[2017-10-04] MEDS: Enoxaparin Sodium 40 MG/0.4 ML SYRINGE SC SCH (09:24)
[2017-10-04] MEDS: Sodium Chloride 0.9% 1,000 ML IV SCH (09:24)
[2017-10-04] MEDS: Vancomycin HCl 1 GM in Premix Bag 1 BAG IVPB SCH ×2 (10:12→20:58)
--- NOTE | 2017-10-04 10:43 | PDOC.PN ---
- Subjective Encounter Start Date: 10/04/17 Encounter Start Time: 10:41 Patient seen and examined, no family at bedside, just transfered to [facility]. No issues overnight per nursing staff - Objective Vital Signs & Weight: Vital Signs (12 hours) Temp Pulse Resp BP BP Pulse Ox 10/04/17 08:00 98.2 F 96 18 124/60 97 10/04/17 06:19 98.0 F 99 18 148/67 H 98 10/04/17 04:00 97.7 F 95 20 151/77 H 95 10/04/17 00:00 98.5 F 109 H 16 158/74 H 94 L Weight Admit Weight 153 lb 3.2 oz Weight 153 lb 3.2 oz I&O: 10/03/17 10/04/17 10/05/17 06:59 06:59 06:59 Intake Total 1038 Balance 1038 Result Diagrams: 10/02/17 08:14 10/02/17 08:14 Additional Labs: Accuchecks 10/04/17 10/03/17 10/03/17 05:41 23:53 19:07 POC Glucose 223 H 229 H 165 H 10/03/17 11:58 POC Glucose 164 H Phys Exam - Physical Examination Constitutional: NAD HEENT: PERRLA, moist MMs, sclera anicteric Neck: no nodes, no JVD, supple coarse breath sounds no respiratory distress Cardiovascular: RRR, no significant murmur, no rub Gastrointestinal: soft, non-tender, no distention Musculoskeletal: pulses present, edema present (trace) Not answering questions appropriately tracks me through the room Dx/Plan (1) Aspiration pneumonia Code(s): J69.0 - PNEUMONITIS DUE TO INHALATION OF FOOD AND VOMIT Status: Acute Comment: Appears to be improving. May be able to switch to enteral abx and discharge as early as today. Awaiting on caregiver to make some decisions. (2) Parkinson disease Code(s): G20 - PARKINSON'S DISEASE Status: Acute (3) DM I (diabetes mellitus, type I) Status: Chronic Qualifiers: Diabetes mellitus complication status: with unspecified complications Qualified Code(s): E10.8 - Type 1 diabetes mellitus with unspecified complications (4) Dementia Code(s): F03.90 - UNSPECIFIED DEMENTIA WITHOUT BEHAVIORAL DISTURBANCE Status: Chronic Qualifiers: Dementia type: unspecified type (5) Acute metabolic encephalopathy Code(s): G93.41 - METABOLIC ENCEPHALOPATHY Status: Resolved Comment: resolved still ruby baseline dementia and better and worse at times - Plan * Continue current conservative management for now, poor prognosis * hospice? family to decide for now * no family at bedside
[2017-10-04] MEDS ORDERED: Pantoprazole 40 MG GRANULES PACKET PO SCH (11:15)
[2017-10-04] MEDS: Dorzolamide HCl/Timolol Maleate 2%/0.5% Ophth Soln 10 ml Bottle R EYE SCH ×2 (13:51→20:47)
[2017-10-04] MEDS: Atorvastatin Calcium 10 MG TAB PO SCH (20:44)
[2017-10-04] MEDS: Latanoprost 0.005% Ophth Soln 2.5 ml Bottle EA EYE SCH (20:48)
[2017-10-04] MEDS ORDERED: NAMZARIC PO SCH (21:00)
[2017-10-04 22:06] LABS: Vancomycin, Trough 34.3 ug/mL
[2017-10-05] MEDS: HumaLOG 300 UNITS/3 ML VIAL SC PRN ×5 (01:19→20:37)
[2017-10-05] MEDS: Sodium Chloride 0.9% 1,000 ML IV SCH ×2 (02:07→16:47)
[2017-10-05] MEDS: Piperacillin/Tazobactam 3.375 GM in Sodium Chloride 0.9% 100 ML IVPB SCH ×4 (04:39→23:21)
[2017-10-05] MEDS: Enoxaparin Sodium 40 MG/0.4 ML SYRINGE SC SCH (08:23)
[2017-10-05] MEDS: Dorzolamide HCl/Timolol Maleate 2%/0.5% Ophth Soln 10 ml Bottle R EYE SCH ×2 (08:23→20:40)
[2017-10-05] MEDS: Pantoprazole 40 MG GRANULES PACKET PO SCH (08:23)
[2017-10-05 10:45] LABS: Vancomycin, Trough 19.9 ug/mL
[2017-10-05] MEDS: Vancomycin HCl 1 GM in Premix Bag 1 BAG IVPB SCH ×2 (11:00→21:01)
--- NOTE | 2017-10-05 16:11 | PDOC.PN ---
- Subjective Encounter Start Date: 10/05/17 Encounter Start Time: 07:20 Subjective: not responding to verbal stimuli, history per caregiver at the bed side Caregiver wishes palliative care but her insurance might not give her inpatient Hospice and she feels she cannot take care of him alone at home. Requesting to DW caremanager/ SW - Objective Resuscitation Status: dnr MAR Reviewed: Yes Vital Signs & Weight: Vital Signs (12 hours) Temp Pulse Resp BP Pulse Ox 10/05/17 11:33 98 F 89 18 188/85 H 92 L 10/05/17 08:00 97.9 F 92 20 135/106 H 95 Weight Admit Weight 153 lb 3.2 oz Weight 153 lb 3.2 oz I&O: 10/04/17 10/05/17 10/06/17 06:59 06:59 06:59 Intake Total 1038 2620 1657 Balance 1038 2620 1657 Result Diagrams: 10/02/17 08:14 10/02/17 08:14 Additional Labs: Accuchecks 10/05/17 10/05/17 10/04/17 10:56 05:25 23:18 POC Glucose 266 H 199 H 278 H 10/04/17 17:31 POC Glucose 232 H Phys Exam - Physical Examination Constitutional: NAD not responding to verbal stimuli HEENT: moist MMs, sclera anicteric Neck: no nodes Respiratory: no wheezing, no rales, no rhonchi Cardiovascular: RRR Gastrointestinal: soft Musculoskeletal: no edema Not responding to vaocal stimuli, moves and opens his eyes for tactile stim Lymphatic: no nodes Skin: no rash, normal turgor Dx/Plan (1) Aspiration pneumonia Code(s): J69.0 - PNEUMONITIS DUE TO INHALATION OF FOOD AND VOMIT Status: Acute (2) Dementia Code(s): F03.90 - UNSPECIFIED DEMENTIA WITHOUT BEHAVIORAL DISTURBANCE Status: Chronic Qualifiers: Dementia type: unspecified type (3) Parkinson disease Code(s): G20 - PARKINSON'S DISEASE Status: Chronic - Plan cont current plan of care (PEG feeds) Rapidly advancing disease, continue current plan. Possible placement at [facility] soon. * .
[2017-10-05] MEDS: Latanoprost 0.005% Ophth Soln 2.5 ml Bottle EA EYE SCH (20:38)
[2017-10-05] MEDS: Atorvastatin Calcium 10 MG TAB PO SCH (20:39)
[2017-10-06] MEDS: HumaLOG 300 UNITS/3 ML VIAL SC PRN ×3 (01:13→11:46)
[2017-10-06] MEDS: Piperacillin/Tazobactam 3.375 GM in Sodium Chloride 0.9% 100 ML IVPB SCH ×2 (04:22→11:47)
[2017-10-06] MEDS: Vancomycin HCl 1 GM in Premix Bag 1 BAG IVPB SCH (08:55)
[2017-10-06] MEDS: Enoxaparin Sodium 40 MG/0.4 ML SYRINGE SC SCH (08:56)
[2017-10-06] MEDS: Sodium Chloride 0.9% 1,000 ML IV SCH (08:56)
[2017-10-06] MEDS: Pantoprazole 40 MG GRANULES PACKET PO SCH (08:57)
[2017-10-06] MEDS: Dorzolamide HCl/Timolol Maleate 2%/0.5% Ophth Soln 10 ml Bottle R EYE SCH (08:57)
[2017-10-06 09:12] VITALS: BP 147/80; TEMP 97.9
[2017-10-06 09:30] LABS: Vancomycin, Trough 24.7 ug/mL
--- NOTE | 2017-10-06 13:56 | DIS ---
DATE OF ADMISSION: 10/01/2017 DATE OF DISCHARGE: 10/06/2017 DISCHARGE DIAGNOSES: 1. Aspiration pneumonia. 2. Chronic dysphagia. 3. End-stage Parkinson's disease. 4. Advanced dementia, multifactorial. 5. Diabetes mellitus type 2, insulin requiring. CONSULTATIONS: None. PERTINENT LABORATORY AND X-RAY FINDINGS: Lactic acid level 1.6, calcium ranged between 8.8-9.4, magn esium 2.0. LFTs within normal limits. BNP 32.5, lipase 21. CBC showed a white blood cell count ran ging between 6.9-13.5. Blood cultures x2 from 10/01/2017 showed no growth at 48 hours. Urine cultur e dated 09/23/2017 showed no growth at 48 hours. Portable chest x-ray dated 10/01/2017 showed no acu te cardiopulmonary process. CT angiogram of the chest dated 10/01/2017 showed no evidence for pulmon renetta embolus. Bibasilar opacities, right greater than left. HOSPITAL COURSE: The patient was initially admitted after presenting with potential increased respir atory distress in the context of aspiration due to severe dysphagia. The patient with progressive an d advanced Parkinson's disease, status post PEG tube placement with tube feeds, presenting with incre ased cough, hypoxia, and severe deconditioning. The patient was placed on broad spectrum antibiotic therapy to include vancomycin and Zosyn throughout the hospital course and given general pulmonary rush pportive measures. The patient was resumed on tube feeds, tolerating up to 6 cans of diabetic 1.5 so lution daily. The patient remained afebrile throughout the hospital course and leukocytosis noted at the time of admission had resolved prior to discharge. Due to patient's overall severely deconditio bree state and chronic dysphagia, the patient will transition to [facility] for long-term care. I have examined the patient at the time of discharge and prepared discharge plan bailey after for return to [facility] on 10/06/2017. DISCHARGE MEDICATIONS: 1. Augmentin 500 mg per PEG tube q.12 hours x7 days. 2. Lumigan 0.01% ophthalmic drops, 1 drop to each eye at bedtime. 3. Vitamin D 5000 units per PEG tube daily. 4. Folbic 1 tablet per PEG tube daily. 5. Dorzolamide 1 drop to right eye b.i.d. 6. Lantus insulin 20 units subcutaneously at bedtime. 7. Namzaric 28/10 mg 1 capsule per PEG tube at bedtime. 8. Myrbetriq 50 mg per PEG tube at bedtime. 9. Omeprazole 40 mg per PEG tube daily. 10. Pravachol 40 mg per PEG tube daily. 11. Sertraline 50 mg per PEG tube at bedtime. FOLLOWUP: The patient will follow up with his primary care provider, Dr. Martinez. CONDITION ON DISCHARGE: Guarded. ACTIVITY: ad edda. DIET: Diabetic 1.5 six cans daily with 85 mL water flush with each can of formula. CODE STATUS: Do not resuscitate, do not intubate. DISPOSITION: Discharged to [facility] on 10/06/2017. Total time preparing in coordinating discharge 32 minutes.
== END 2017-10-06 12:28 | DRG 177 ==
LOC: ERS 05:00 → UNDOADMIN 09:26 → 2NO 09:26 → ONC 10-04 06:25
PROVIDERS: ADMIT Internal Medicine; ATTEND Internal Medicine
DX: J69.0 Pneumonitis due to inhalation of food and vomit (principal); G93.41 Metabolic encephalopathy; G20 Parkinson's disease; F02.80 Dementia in other diseases classified elsewhere, unspecified severity, without behavioral disturbance, psychotic disturbance, mood disturbance, and anxiety; R13.12 Dysphagia, oropharyngeal phase; I25.2 Old myocardial infarction; Z90.49 Acquired absence of other specified parts of digestive tract; R09.02 Hypoxemia; E78.5 Hyperlipidemia, unspecified; Z66 Do not resuscitate; E11.9 Type 2 diabetes mellitus without complications
CPT/HCPCS: 36415; 36416; 51701; 71045; 71275; 80048; 80053; 80202; 81003; 82553; 83605; 83690; 83735; 83880; 84484; 85025; 85379; 87040; 87086; 93005; 94640; 96365; 96366; A4216; J1650; J1956; J2543; J3370; J7050; J7620